=== PATIENT | female | born 1940 | race Caucasian/White ===

== ENCOUNTER 2018-09-24 00:20 | Inpatient (IN) | payer OTHER ==
[2018-09-24] VITALS (19 sets, daily range): BP systolic 85–124; BP diastolic 41–76
[~2018-09-24] VITALS: Ht 154.9 cm; Wt 83.5 kg
--- NOTE | 2018-09-24 00:29 | NUR ---
PT PRESENTS TO ER TODAY WITH C/O OF ALOC. PER MEDICS PT WAS LAST SEEN AWAKE APPROX 2 HRS AGO. PT WENT TO BED USUAL AND AT APPROX 2300 YESTERDAY CONTOUR STITCHER WENT IN TO CARE FOR PT AND FOUND HER UNRESOPNSIVE. PER MEDICS PTS O2 WAS 80 SO SHE WAS PLACED ON 15L OF O2 VIA MASK. MEDICS REPORT A GSC OF 3 IN THE FEILD. UPON ARRIVAL PT ON MASK AT 15LS. PT RESPONDS TO PAINFUL STIMULI. NO TRAUMA NOTED. PT PLACED ON FULL PIN PUSHER. CPT CONTINUED ON 15L VIA MASK. RHONCHI HEARD IN THE UPPER LOBES BILATERALLY ON ASCULTATION. DR OLMOS AT BEDSIDE FOR MSE.
[2018-09-24 01:03] LABS: BASOPHIL % 0.2 % (0-2); PLATELET COUNT 334 x10^3mcL (130-400)
[2018-09-24 01:09] LABS: CALCIUM 8.3 mg/dL (8.5-10.1); CARBON DIOXIDE 28.5 mmol/L (21-32); CHLORIDE SERUM 97 mmol/L (98-107); CREATININE SERUM 1.1 mg/dL (0.6-1.0); GLUCOSE SERUM 89 mg/dL (74-106); POTASSIUM SERUM 4.6 mmol/L (3.5-5.1); RED CELL DISTRIBUTION WIDTH 16.8 % (11.5-14.5); SODIUM SERUM 133 mmol/L (136-145)
[2018-09-24 01:23] LABS: ALKALINE PHOSPHATASE 115 U/L (46-116); ALT/SGPT 41 U/L (14-59); AST/SGOT 53 U/L (15-37); BILIRUBIN TOTAL 0.63 mg/dL (0.20-1.00); FREE T4 1.59 ng/dL (0.76-1.46); TOTAL PROTEIN, SERUM 6.9 g/dL (6.4-8.2)
[2018-09-24 01:24] LABS: ALBUMIN 2.2 g/dL (3.4-5.0)
--- NOTE | 2018-09-24 01:54 | NUR ---
0035 RT AT BEDSIDE. 0039 PT PLACED ON BIPAP BY RT PER MD OLMOS. 0112 MD OLMOS AT BEDSIDE FOR INTUBATION. 0113 10MG OF ETOMIDATE GIVEN BY ENRICO GONZALEZ BY VERBAL ORDER OF MD OLMOS. 0114 PT GIVEN 150MG OF SUCCINYLCHOLINE BY ENRICO GONZALEZ PER MD OLMOS VERBAL ORDER. 0117 PT INTUBATED BY MD OLMOS ON FIRST ATTEMPT. 7.5 ETT AND 21CM AT THE LIP. 0120 NG TUBE PLACED BY MYSELF SARIAH WESTON. EPIGASTIRC ASCULTATION TO CONFIRM PLACEMENT. 0125 PT PLACED ON VENT BY RT. 0127 RADIOLOGY AT BEDSIDE FOR CHEST XRAY TO CONFIRM PLACEMENT OF ETT AND NG TUBE.
[2018-09-24 02:26] LABS: MAGNESIUM 2.1 mg/dL (1.8-2.4); PHOSPHOROUS 4.2 mg/dL (2.5-4.9)
--- NOTE | 2018-09-24 02:27 | NUR ---
0205 PT STARTED ON PROPOFOL 10MCG/KG/MIN WITH PT ESTIMATED AT 59KG. 0210 PTS BP 79/49 PTS PROPOFOL DRIP STOPPED MD OLMOS MADE AWARE. 0215 PT STARTED ON 2ND LITER OF NS PER MD OLMOS IN THE L WRIST. 0219 INSERTED MARTINEZ USING ASEPTIC TECHNIQUE, 200CC OF OUTPUT. 0232 FAMILY AT BEDSIDE.
[2018-09-24] MEDS ORDERED: KEFLEX500 M1 PO (02:36)
[2018-09-24] MEDS ORDERED: NATURE'S BLEND F1 MG PO (02:37)
[2018-09-24] MEDS ORDERED: NATURE'S BLEND500 M3 PO (02:38)
[2018-09-24] MEDS ORDERED: BENAZEPRIL HYDR20 M1 PO (02:39)
[2018-09-24] MEDS ORDERED: ALENDRONATE SOD70 M2 PO (02:39)
[2018-09-24] MEDS ORDERED: NOR5 PO (02:49)
[2018-09-24] MEDS ORDERED: ELIQUIS5 MG PO (02:49)
[2018-09-24] MEDS ORDERED: SYNTHROID0.112 MG PO (02:50)
[2018-09-24 03:00] LABS: microscopic required? YES; urine erythrocyte NEGATIVE (NEGATIVE)
[2018-09-24 03:11] LABS: AMPHETAMINE QUAL UR NONE DETECTED (See below)
--- NOTE | 2018-09-24 03:20 | NUR ---
REPORT GIVEN TO ENRICO GLEZ IN ICU TO ASSUME CARE.
--- NOTE | 2018-09-24 04:13 | NUR ---
PT TRANSPORTED ON MONITOR BY ENRICO BRYAN, AUBREY PETTY, AND RT TO CT FOR CT HEAD PRIOR TO TRANSPORT TO ICU. PT REMAINED ON DRIPS TITRATED TO SEDATION AND BP. ARRIVED AT ICU WITH NO INCIDENT AND CARE WAS TRANSFERRED TO THE ICU TEAM WITH ENRICO GLEZ THE PRIMARY NURSE.
--- NOTE | 2018-09-24 04:47 | NUR ---
RECEIVED PT FROM ER VIA [facility] ACCOMPANIED WITH NURSE, EMT AND RT, PT SEEN, INTUBATED, RESPONDS TO TACTILE STIMULUS, OPEN EYES AT TIMES, ON PROPOFOL 10 MCG/KG/MIN, 7.5 ETT WITH VENT ON AC MODE WITH TV-500 ML, PEEP-5, RATE:14 AND FIO2:50%, SPO2:96%, RT PROTOCOL, LUNG SOUNDS DIMINISHED, ON HEALTHCARE PROJECT MANAGER WITH SB, ON LEVOPHED 6 MCG/MIN, PULSES PALPABLE, EDEMA NOTED TO BLE, PT CONTRACTED TO BUE AND BLE, ECCHYMOSIS TO BUE AND DISCOLORATION TO BUTTOCKS, OGT IN PLACE, ABD SOFT WITH ACTIVE BS, NO BM AT THIS TIME, MARTINEZ VIA GRAVITY DRAINING LEE ANN COLOR URINE, VICENTE WRIST WITH SOFT RESTRAINTS, SIDE RAILS UP.
--- NOTE | 2018-09-24 05:24 | NUR ---
PER DR CHELSIE GAGE WITH NO SCD TO BLE AT THIS TIME DUE TO PT RECENTLY WITH DVT HX.
[2018-09-24 05:25] LABS: PLATELET COUNT 309 x10^3mcL (130-400)
[2018-09-24 05:31] LABS: CALCIUM 7.4 mg/dL (8.5-10.1); CARBON DIOXIDE 21.7 mmol/L (21-32); CHLORIDE SERUM 101 mmol/L (98-107); GLUCOSE SERUM 107 mg/dL (74-106); SODIUM SERUM 134 mmol/L (136-145)
--- NOTE | 2018-09-24 05:35 | NUR ---
RT SUJATHA DECREASED FIO2 TO 40%, LEVOPHED INFUSING @ 8 MCG/MIN, DR OROPEZA MADE AWARE OF PT'S RHYTHM IS SB WITH BBB AND PAC'S.
[2018-09-24 05:36] LABS: BASOPHIL % 0 % (0-2)
--- NOTE | 2018-09-24 05:39 | NUR ---
DR HOLGUIN MADE AWARE OF PT'S H/H FROM 07/06 DROP TO 8.5. NO NEW ORDER RECEIVE AT THIS TIME.
--- NOTE | 2018-09-24 06:25 | NUR ---
ADVANCED OGT AT THIS TIME PER CXR RESULT, DR HOLGUIN MADE AWARE, PER DR HOLGUIN HE WILL ORDER ANOTHER KUB-ABD.
--- NOTE | 2018-09-24 07:11 | NUR ---
REPORT GIVEN TO JAZMINE-RN, ALL QUESTIONS ANSWERED AND CONCERNS ADDRESSED.
--- NOTE | 2018-09-24 10:47 | NUR ---
ATTEMPTED TO CALL PT'S SONS SPENCER AND [employer] MAH[employer], AT NUMBERS LISTED ON PT'S FACE SHEET. NEITHER PARTIES ANSWERED. MESSAGE LEFT TO CALL BACK [facility] ICU AND NUMBER PROVIDED. PER DR. HARRIS EMERGENT CENTRAL LINE CONSENT TO BE ISSUED.
--- NOTE | 2018-09-24 11:00 | NUR ---
TIME OUT PERFORMED AT THIS TIME FOR ULTRASOUND GUIDED CENTRAL LINE INSERTION AND PLACEMENT RIGHT VERSUS LEFT INTERNAL JUGULAR VEIN. DR. HARRIS, MARGARITA TECH, AND MYSELF PRESENT. ALL IN AGREEMENT FOR PT, PROCEDURE, PLACEMENT, POSITIONING, AND APPROPRIATE REVIEW OF RECORDS.
--- NOTE | 2018-09-24 12:14 | NUR ---
PROPOFOL D/C'D. INITIATED FENTANYL @ 0.5 MCG/KG/HR AND VERSED @ 1 MG/HR.
[2018-09-24 12:27] LABS: BASOPHIL % 0 % (0-2); PLATELET COUNT 279 x10^3mcL (130-400); RED CELL DISTRIBUTION WIDTH 17.2 % (11.5-14.5)
--- NOTE | 2018-09-24 14:32 | NUR ---
BP 102/47 (69). LEVOPHED TITRATED FROM 5 MCG/MIN TO 2.5 MCG/MIN AT THIS TIME. WILL CONTINUE TO MONITOR
--- NOTE | 2018-09-24 15:07 | NUR ---
Initial Nutrition Assessment Dx: Respiratory insufficiency PMHx: HTN, Severe RA, Hypothyroidism, Recent DVT (Dx [facility]) PSHx: None Labs: (09/24) Na 134L, K 4, BG 107H, BUN 32H, Cr 1.0, A1c 6.1, WBC 9.5, H/H 8.5L/25L Meds: Colace, Propofol, Eliquis, Folic acid, Fosamax, Levophed, Lotensin, Blodgett, Norvasc, Oyster shell Ca, NSIV, Synthroid, Tylenol, Vancocin, Zosyn, Zofran Also receives propofol at 10 mcg/kg/min (3.846 mL/Hr which provides an additional 101 kcal). Nutrition Support: TF with Jevity 1.2 @ goal rate 50 mL/Hr with 50 mL FWF Q4H. Provides 1440 calories, 67 g protein, and 968 mL FW (total fluids including FWF: 1268 mL). Residuals: None documented I and O: (09/24) 460/200 +260 Ht: 61" (155 cm) Wt: 141# (64.1 kg) BMI: 26.7 (Acceptable for advanced age) IBW: 105# %IBW: 134% UBW: Unknown, pt. intubated and unable to answer questions. Age: 77 y/o elderly female Food Allergies: NKFA Skin: Rt. foot skin tear, discolorations to buttocks, ecchymosis to BUE Tucker: 9 Edema: + to BLE GI: Last BM Per H&P, pt. admitted with worsening ALOC and SOB x 1 day associated with O2 desaturation in the 80%'s and unresponsiveness. Pt. bedbound d/t severe RA, but is AO x 3 at baseline. Recent hospitalization at [place] with new medication for DVT; discharged on 09/16/18. KUB x-ray conducted on 09/24 with enteric feeding tube placed correctly in stomach with gas and moderate amounts of stool throughout colon per provider notes. Pt. seen intubated and sedated during visit with OGT in place. Tolerating Jevity running at 10mL/Hr and pt. tolerating well without GI distress per RN. T: TF/TPN Problem with: No reports of N/V/D/C per RN Problems with: Chewing: Y Swallowing: Y Current appetite: N/A Recent wt change: Unknown %wt change: N/A Vitamin/Supplement use: Unknown Special diet at home: Regular at baseline Physical activity: Bedbound d/t severe RA Education: No diet education provided; not appropriate at this time Estimated Nutritional Needs Based on body weight 64 kg, Ve: 7.40, T: 36.2 C Energy: 1073 kcal/d (PSU 2003 for pts. in ICU with ventilation support) Protein: 64-76 g/d (1.0-1.2 g/kg)-skin breakdown prevention/maintenance Fluid: 1073 ml/d (1 ml/kcal) or per doctor Nutrition Diagnosis 1. Excessive EN infusion r/t current TF regimen order and decreased needs for critical illness AEB current ordered rate and sedative agent meeting >140% estimated calorie needs. Intervention/RD recommendations 1. Recommended to decrease Jevtiy 1.2 to 40 mL/Hr to better meet calorie needs. Alongside propofol (3.846 mL/Hr which provides an additional 101 kcal), regimen will provide 1253 calories and 53 g protein, which will meet 116% estimated calorie needs and 83% estimated protein needs. Monitor/Evaluate Goal: TF intake at least 75% estimated needs Monitor: TF tolerance, Labs, GI function, weights F/U in 2-3 days as high risk (09/26-09/27)
--- NOTE | 2018-09-24 19:35 | NUR ---
RECEIVED PT INTUBATED AND SEDATED ON VERSED @ 1 MG/HR AND FENTANYL @ 0.5 MCG/KG/HR. RSS=5 SLUGGISH RESPONSE. PT UNABLE TO FOLLOW SIMPLE COMMANDS. RESPONDS TO TACTILE STIMULI. PUPILS 2MM SLUGGISH RESPONSE TO LIGHT B/L. NO FACIAL DROOP. EYES OPEN BUT DO NOT TRACK.PT INTUBATED TO VENT, INTACT. LIJ, TLC, CDI, PATENT AND INFUSING. OGT INTACT AND SECURED, AIR AUSCULTATED OVER GASTRIC REGION FOR PLACEMENT WITH XRAY FOR CONFIRMATION. TRACHEA MIDLINE, NO DRAINAGE TO EENT.7.5 ETT, 22 LL. ORAL CARE PROVIDED PER VAP PROTOCOL. VENT SETTINGS AC MODE, FIO2 40%, RATE 14, VT 500, PEEP 5. CHEST RISE/FALL SYMMETRIC, E/U BREATHING NO ACUTE RESP DISTRESS. LUNG SOUNDS FINE CRACKLES BUL, DIMINISHED BASES.PT ON FULL OREMAN, SINUS BRADYCARDIA, HR 43. S1/S2 SOUNDS HEARD, CHEST WALL STABLE, NO S/S OF CHEST PAIN.SKIN COLOR CONSISTENT WITH ETHNICITY, CAP REFILL <3 SECONDS, PULSES WEAK BUT PALPABLE X4 EXTREMITIES, SKIN COOL/PALE. EDEMA NOTED TO RUE HAND +2, LUE +1. NS @ 70 ML/HR. LEVOPHED INFUSING @ 3 MCG/MIN FOR BP SUPPORT. NO SCD'S AT THIS TIME THEY DO NOT FIT PT HAS NOTED CONTRACTURES/ DEFORMITES TO BUE/BLE.GEN WEAKNESS. CONTRACTURES/DEFORMITIES NOTED TO BUE FINGERS AND BLE LEGS IN FROG LIKE POSITION. PT ON TURNING SCHEDULE Q2H. SOFT RESTRAINTS ON TO BUE FOR PT SAFETY PT REACHES FOR ETT WHEN OFF, SKIN/PULSE WNL. NO JOINT SWELLING/TENDERNESS. WARMING MEASURES IMPLEMENTED WITH WARMING BLANKET.OGT INTACT INFUSING JEVITY @ 10ML/HR, 50 ML FWF Q4H. GRV= 10 ML. NO S/S OF N/V.ACTIVE BOWEL SOUNDS X4 QUADRANTS, ABD SOFT/ROUND. NO BM NOTED. HERNIA NOTED TO ABD.F/C DRAINING TO GRAVITY CLEAR YELLOW URINE. NO LABIAL EDEMA/DISCHARGE NOTED. IV TO LEFT WRIST AND RAC, PORTS PATENT, NO S/S OF INFILTRATION, DRESSING CDI. SKIN COOL/DRY TO TOUCH. 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 DISCOLORATION TO BUTTOCKS, OPTIFOAM PLACED FOR PROTECTION.PT SEDATED, BRIANDA. FAMILY AT BEDSIDE AND SUPPORTIVE, TEACHING PROVIDED OF POC AND DISEASE PROCESS. BED AT LOWEST SETTING, CALL LIGHT WITHIN REACH, HOB ELEVATED 30 DEGREES. WILL CONT TO MONITOR.
--- NOTE | 2018-09-24 19:35 | NUR ---
TUBE FEEDING JEVITY TITRATED TO 20 ML/HR, GRV=10, PT TOLERATING FEEDING.
--- NOTE | 2018-09-24 20:00 | NUR ---
VERSED TITRATED TO 0.5 MG/HR TO ACHIEVE RSS=4.
--- NOTE | 2018-09-24 20:40 | NUR ---
DR. TOBIN AT BEDSIDE FOR MSE.
--- NOTE | 2018-09-24 23:15 | NUR ---
RESTRAINTS OFF AT THIS TIME, PT DOES NOT REACH FOR ETT WHEN RESTRAINTS OFF. WILL CLOSELY MONITOR AND REASSESS FOR NEED FOR RESTRIANTS.
--- NOTE | 2018-09-24 23:15 | NUR ---
TUBE FEEDING TITRATED TO 30 ML/HR. GRV=10. PT TOLERATING FEEDING. NO S/S OF N/V.
--- NOTE | 2018-09-24 23:15 | NUR ---
TUBE FEEDING TITRATED TO 20 ML/HR. GRV=10. PT TOLERATING FEEDING. NO S/S OF N/V.
[2018-09-25] VITALS (18 sets, daily range): BP systolic 88–115; BP diastolic 43–61
--- NOTE | 2018-09-25 00:30 | NUR ---
NIBP 102/53 (76). LEVOPHED TITRATED TO 1 MCG/MIN.
--- NOTE | 2018-09-25 02:00 | NUR ---
NIBP 102/47 (68). LEVOPHED TITRATED OFF AT THIS TIME.
--- NOTE | 2018-09-25 03:17 | NUR ---
TUBE FEEDING TITRATED TO 40 ML/HR, GOAL RATE PER ORDER. GRV=10. PT TOLERATING FEEDING. NO S/S OF N/V.
--- NOTE | 2018-09-25 04:15 | NUR ---
NIBP 82/39 (57). LEVOPHED TITRATED BACK ON @ 1 MCG/MIN.
--- NOTE | 2018-09-25 04:20 | NUR ---
HHN TX PRN GIVEN. DUONEB 3ML.
[2018-09-25 05:29] LABS: PLATELET COUNT 209 x10^3mcL (130-400)
--- NOTE | 2018-09-25 05:30 | NUR ---
NIBP 81/42 (57). LEVOPHED TITRATED TO 3 MCG/MIN.
[2018-09-25 05:37] LABS: BASOPHIL % 0 % (0-2); RED CELL DISTRIBUTION WIDTH 17.2 % (11.5-14.5)
[2018-09-25 05:39] LABS: CALCIUM 7.4 mg/dL (8.5-10.1); CARBON DIOXIDE 22.4 mmol/L (21-32); CHLORIDE SERUM 102 mmol/L (98-107); CREATININE SERUM 0.8 mg/dL (0.6-1.0); GLUCOSE SERUM 133 mg/dL (74-106); MAGNESIUM 1.5 mg/dL (1.8-2.4); PHOSPHOROUS 2.7 mg/dL (2.5-4.9); POTASSIUM SERUM 3.7 mmol/L (3.5-5.1); SODIUM SERUM 133 mmol/L (136-145)
--- NOTE | 2018-09-25 05:39 | NUR ---
HEDIS ABSTRACTOR AT BEDSIDE FOR CXRY
--- NOTE | 2018-09-25 05:45 | NUR ---
NIBP 94/55 (70). LEVOPHED TITRATED TO 2 MCG/MIN.
--- NOTE | 2018-09-25 07:15 | NUR ---
GAVE REPORT TO ENRICO QUAN. UPDATES GIVEN, QUESTIONS ANSWERED.
--- NOTE | 2018-09-25 07:29 | NUR ---
BP 86/42; RECHECKED BP 89/42 (62); LEVOPHED WAS TITRATED FROM 2MCG/MIN TO 4MCG/MIN.
--- NOTE | 2018-09-25 07:30 | NUR ---
THE PATIENT WAS INTUBATED AND SEDATED WITH VERSED AT 0.5MG/HR AND FENTANYL AT 0.5MCG/KG/HR. BOTH DRIPS WERE HELD AT THIS TIME FOR SEDATION VACATION. PATIENT RESPONSIVE TO TACTILE STIMULUS AND VICENTE PUPILS WITH SLUGGISH REACTION TO LIGHT. 7.5 ETT WAS SECURED AT 23CM AT LIPLINE AND CONNECTED TO VENT VIA VCV-AC MODE: FIO2 40% RATE 14, PEEP 5, AND Vt 500. OGT IN PLACE, SECURED TO ETT AND CONNECTED TO TF OF JEVIY AT 40CC/HR. FWF 50CC/Q4HR. NO GASTRIC RESIDUAL. TLC TO LIJ WITH DRESSING IN PLACE. OTHER H/L TO LEFT AND RIGHT WRISTS. PATIENT WAS ON LEVOPHED DRIP AND NS. MARTINEZ CATH TO GRAVITY DRAINING YELLOW URINE. GAYMAR TEMP VIA RECTAL IN PLACE. HEAD OF BED WAS ELEVATED. BED WAS AT LOWEST POSITION. ALARM WAS ON.
--- NOTE | 2018-09-25 07:45 | NUR ---
BP 89/42 (62); LEVOPHED WAS TITRATED FROM 4MCG/MIN TO 6MCG/MIN.
--- NOTE | 2018-09-25 08:00 | NUR ---
FENTANYL WAS RESUMED AT 0.25MCG/KG/HR AND VERSED WAS RESUMED AT 0.25MG/HR. BECAUSE THE PATIENT STARTED TO BITE THE TUBE.
--- NOTE | 2018-09-25 11:05 | NUR ---
AIR MATTRESS WAS SET UP FOR THE PATIENT.
--- NOTE | 2018-09-25 11:55 | NUR ---
NEW FENTANYL BAG AND LINE AND NEW VERSED BAG AND LINE WERE CHANGED FOR THE PATIENT.
--- NOTE | 2018-09-25 14:02 | NUR ---
BP 103/57 (75); LEVOPHED WAS TITRATED FROM 6MCG/MIN DOWN TO 4MCG/MIN.
--- NOTE | 2018-09-25 14:28 | NUR ---
DR. NEFF IN TO SEE THE PATIENT. UPDATE WAS PROVIDED TO THE DOCTOR.
--- NOTE | 2018-09-25 14:36 | NUR ---
BP 87/44 (62); LEVOPHED WAS TITRATED FROM 4MCG/MIN TO 6MCG/MIN.
--- NOTE | 2018-09-25 16:22 | NUR ---
CENTRAL LINE CARE AND MARTINEZ CARE WERE PROVIDED TO THE PATIENT PER PROTOCOL. THE PATIENT WAS GIVEN A BATH. GOWN CHANGED.
--- NOTE | 2018-09-25 17:33 | NUR ---
PATIENT TO BE TRANSFERRED TO [facility] ROOM CICU ROOM 231. REPORT TO BE CALLED TO . DR SANCHEZ GOFF MD AND DR HAMMOND OUTSIDE MEDICAL SALES REPRESENTATIVE. DISCHARGE ORDERS COMPLETED BY DR QUAN.
--- NOTE | 2018-09-25 18:30 | NUR ---
THE PATIENT REMAINED INTUBATED AND ON VENT WITH THE SAME SETTING: FIO2 40%, RATE 14, PEEP 5, AND Vt500. PATIENT WAS ON FENTANYL AT 0.25MCG/KG/H AND VERSED 0.25MG/HR. ALSO, PATIENT WAS ON LEVOPHED AT 6MCG/MIN DUE TO LOW BP AND MAP.
--- NOTE | 2018-09-25 19:30 | NUR ---
RECEIVED REPORT FROM ENRICO SALES. PT IS ALERT AND RESPONSIVE TO VERBAL STIMULUS. PT IS INTUBATED AND SEDATED ON FENTANYL 0.25 MCG/KG/HR AND VERSED 0.25 MG/HR. 7.5 ETT AT 22 CM AT LL. EENT FREE OF DISCHARGE. OGT PATENT AND INTACT. VENT SETTINGS INCLUDE TV: 500, O2: 40%, RATE: 14, PEEP: 5. LUNG SOUNDS DIMINISHED TO BILATERAL UPPER AND LOWER LOBES. S1 S2 HEART SOUNDS AUSCULTATED. PT HAS PERIPHERAL IV TO LEFT HAND AND LIJ PATENT, DRESSING CDI. NS INFUSING AT 10 ML/HR, AND LEVOPHED INFUSING AT 6 MCG/MIN. PITTING EDEMA TO BLE, AND +1 EDEMA TO BUE. CAP REFILL <3 SECONDS X4. SKIN IS WARM AND CONSISTENT WITH ETHNICITY. PT HAS ECCHYMOSIS TO BUE, AND RIGHT LEG SKIN TEAR, AND RIGHT KNEE SCAB. PT'S LOWER EXTREMITIES APPEAR TO RESEMBLE CONTRACTURES. ABD IS SOFT AND ROUNDED WITH ACTIVE BOWEL SOUNDS X4Q. JEVITY INFUSING AT AT 40 ML/HR WITH NO RESIDUAL. MARTINEZ DRAINING VIA GRAVITY, URINE IS YELLOW WITH FAIR OUTPUT. OPTIFOAM TO COCCYX. ALL QUESTIONS AND CONCERNS ANSWERED.
--- NOTE | 2018-09-25 20:37 | NUR ---
DR. TOBIN AT BEDSIDE FOR UPDATES. ALL QUESTIONS AND CONCERNS ANSWERED.
--- NOTE | 2018-09-25 23:15 | NUR ---
LEVOPHED TITRATED FROM 6 MCG/MIN TO 7 MCG/MIN FOR LOW BP AND MAP.
--- NOTE | 2018-09-25 23:49 | NUR ---
RT AT BEDSIDE.
[2018-09-26] VITALS (17 sets, daily range): BP systolic 85–115; BP diastolic 36–84
[2018-09-26 05:53] LABS: PLATELET COUNT 258 x10^3mcL (130-400)
[2018-09-26 05:54] LABS: CALCIUM 7.4 mg/dL (8.5-10.1); CARBON DIOXIDE 24.1 mmol/L (21-32); CHLORIDE SERUM 100 mmol/L (98-107); CREATININE SERUM 1.1 mg/dL (0.6-1.0); GLUCOSE SERUM 173 mg/dL (74-106); MAGNESIUM 2.4 mg/dL (1.8-2.4); PHOSPHOROUS 2.4 mg/dL (2.5-4.9); POTASSIUM SERUM 4.1 mmol/L (3.5-5.1); SODIUM SERUM 133 mmol/L (136-145)
[2018-09-26 05:58] LABS: RED CELL DISTRIBUTION WIDTH 17.2 % (11.5-14.5)
[2018-09-26 06:23] LABS: BAND NEUTROPHIL 4 % (0-10); MONOCYTE 2 % (0-7); SEGMENTED NEUTROPHILS 89 % (37-75)
[2018-09-26 06:26] LABS: PLATELET MORPHOLOGY PLATELETS NORMAL; burr cell (echinocyte) 1+; rbc morphology (normal/abnorm) ABNORMAL (NORMAL)
--- NOTE | 2018-09-26 07:13 | NUR ---
BP 108/50 (MAP 73), LEVOPHED TITRATED FROM 7 MCG/MIN TO 6 MCG/MIN. WILL CONTINUE TO MONITOR.
--- NOTE | 2018-09-26 07:50 | NUR ---
PATIENT'S BP 112/46 (MAP 74). LEVOPHED TITRATED FROM 6MCG/MIN TO 5 MCG/MIN. WILL CONTINUE TO MONITOR.
--- NOTE | 2018-09-26 08:15 | NUR ---
PATIENT'S BP 108/66, MAP 77. LEVOPHED TITRATED FROM 5 MCG/MIN TO 4 MCG/MIN. WILL CONTINUE TO MONITOR.
--- NOTE | 2018-09-26 08:47 | NUR ---
BP 114/41, MAP 66. LEVOPHED TITRATED FROM 4 MCG/MIN TO 2 MCG/MIN. WILL CONTINUE TO MONITOR.
--- NOTE | 2018-09-26 09:00 | NUR ---
SEEN BY RSIDENTS AND PLAN OF CARE DISCUSSED.
--- NOTE | 2018-09-26 10:30 | NUR ---
DR GOEL AND RESIDENTS ROUNDING. UPDATES PROVIDED BEDSIDE.
--- NOTE | 2018-09-26 10:30 | NUR ---
BP 78/32, MAP 49. LEVOPHED TITRATED FROM 3 MCG/MIN TO 2 MCG/MIN.
--- NOTE | 2018-09-26 10:47 | NUR ---
RECEIVED PATIENT FROM TRUCK SWITCHER WITH CONTRACTED EXTREMITIES AND EDEMA TO THE LOWER EXTREMITIES OF ONE PLUS AND TO THE UPPER OF ONE WELL WITH FLUID RETENTION AND REDNESS TO THE SKIN. PATIENT HAS BEEN ON 02 VIA VENT AND ORAL AIRWAY. ALSO ON FEEDING THROUGH THE ORAL OF JEVITY AT 50CC PER HOUR. THE PATIENTS NG HAS MINIMAL TO NO RESIDUAL AND PLACEMENT CHECKED INDICATED. VITALS AT THIS TIME AT 97.9, 67, 94%, 108/80, 17. PATIENT HAS MINIMAL RESPONDING TO STAFF AND HAS BEEN LETHARGIC AND ON LEVAFED, FENTANYL. PATINET HANNON BEEN POSITIONED AND MARTINEZ TO GRAVITY AND URINE IS CLOUDY WITH SEDIMENT NTOED. PATIENT HAS A PROBE TO THE RETAL AND TEMPERATURE HAS BEEN MAINTAINED. CONTINUED [facility] REPIRATORY THERAPY ORDERED AND NO SIGNS OF ASPIRATION NOTED. WILL CONTINUE TO MONITOR.
--- NOTE | 2018-09-26 10:53 | NUR ---
DR TOBIN AT BEDSIDE TO ASSESS PATIENT. UPDATES PROVIDED BY NURSING.
--- NOTE | 2018-09-26 10:56 | NUR ---
SEEN BY DR TOBIN AND ORDER FOR C PAP RECIEVED. RESPIRATORY SET UP THE PATIENT AND WILL CONTINUE TO MONITOR.
--- NOTE | 2018-09-26 11:01 | NUR ---
EUGENIO BERNARD AT BEDSIDE AND PLACED PATIENT ON CPAP 10/5, FIO2 30%
--- NOTE | 2018-09-26 11:20 | NUR ---
CONTINUED ON LEVAPHED AND THE FENTANYL AND THE VERSED ON HOLD AT THIS ITME. PATIENT WILL BE MONITORED FOR TOLERANCE OF THE C PAP VIA VENT.
--- NOTE | 2018-09-26 15:05 | NUR ---
FEMALE FAMILY ARRIVED AND NOW AT BEDSIDE. PATEINT WITH MINIMAL REACTION TO STIMULI STILL NOTED. REID MCKINLEYS BEEN TOLERATING THE C PAP WELL AND 02 AT 98 PERCENT AT THIS TIME. WILL CONTINUE TO MONITOR INDICATED.
--- NOTE | 2018-09-26 15:59 | NUR ---
PATIENT'S BP 113/56, MAP 77. LEVOPHED TITRATED FROM 3 MCG/MIN TO 2 MCG/MIN.
--- NOTE | 2018-09-26 16:16 | NUR ---
MOVED THE PATIENT AND PATIENT WAS NOTED TO HAVE MILD REACTION TO THE MOVEMENT. HER BONES ARE NOTE TO MAKE CRACKING SOUNDS AND JOINTS ARE FROZEN TO THE BILATERAL LOWER EXTREMITIES. PATIENT IS NOW BEING SUCTIONED BY RT AND SHE HAS RESPONDED TO THIS BUT IS QUICKLY BACK TO HER LETHARGIC STATE AGAIN. NO SPONTANEOUS EYE OPENING NOTED. CONTINUED ON C PAP INDICATED.
--- NOTE | 2018-09-26 16:32 | NUR ---
PATIENT'S BP 141/55, MAP 88. LEVOPHED TITRATED FROM 2 MCG/MIN TO 1 MCG/MIN.
--- NOTE | 2018-09-26 17:45 | NUR ---
PATIENT'S BP 100/43, MAP 62. LEVOPHED TITRATED OFF AT THIS TIME.
--- NOTE | 2018-09-26 18:36 | NUR ---
PATIENT HAS BEEN CALM AND MINIMAL NOTED PERIODS OF MOVEMENT AND HAS NOT YET OPENED HER EYES. CONTINUED ON THE C PAP ORDERE AND VITAS ARE AT 75, 98%, 92/44. PATIENT HAS NOT HAD A TEMPERATURE AND THE OUTPUT IS MINIMAL. PATIENT HAS BEEN DIFFICULT TO POSITION DUE TO HER CONTRACTURES. FAMILY WAS HERE FOR A LONG TIME AND ATTENTIVE WITH CARE.
--- NOTE | 2018-09-26 19:30 | NUR ---
REC'D PT FROM DAY NURSE. PT RESTING IN BED. CURRENTLY NONVERBAL AND VENTED. RESPONDS TO PAINFUL STIMULI. PUPILS EQUAL AND SLUGGISH. 7.[address], LL 22. VENT SETTINGS: A/C, RATE 14, TIDAL VOLUME 500, PEEP 5, FIO2 30%. SPO2 99%. ORAL CARE PROVIDED. MINIMAL WHITE SECRETIONS SUCTIONED. TELE 2, NSR. TF JEVITY 1.2 INFUSING @ 40 ML/HR WITH 50 ML H20 FLUSH Q4H VIA OGT. NO RESIDUAL ASPIRATED. EDEMA NOTED TO BUE/BLE. ECCHYMOSIS BUE. OPTIFOAM TO BUTTOCKS. HEELS/ELBOWS OFFLOADED. CONTRACTURES TO BLE WITH STIFFENED BUE. DEFORMITIES NOTED TO VICENTE HANDS D/T HX RA. THICKENED TOE NAILS. MARTINEZ IN PLACE STATLOCKED TO UPPER THIGH DRAINING YELLOW URINE WITH SEDIMENTS. IVS TO RFA/LFA FLUSHED AND PATENT, SITES WNL. CENTRAL LINE TO LIJ NOTED. ALL PORTS FLUSHED AND PATENT, SITE WNL. CONTINUOUS RECTAL TEMP: 98.9. WILL CONTINUE TO MONITOR.
--- NOTE | 2018-09-26 19:50 | NUR ---
BP 97/38, MAP 59, HR 77. LEVO RESTARTED @ 1 MCG/MIN
[2018-09-27] VITALS (18 sets, daily range): BP systolic 88–119; BP diastolic 38–59
--- NOTE | 2018-09-27 01:08 | NUR ---
SPOKE TO DR. PRATT. MADE AWARE OF DR. NEFF'S RECOMMENDATIONS TO CHANGE ELIQUIS TO 5 MG BID PER CONSULTATION NOTE. PT CURRENTLY ON ELIQUIS 5 MG DAILY. RESIDENT STATED HE WILL RELAY TO DAY TEAM. PT'S TEMP 99.9 VIA CONTINUOUS RECTAL TEMP. COOLING MEASURES INITIATED. BP 89/35, MAP 55, HR 80. LEVOPHED TITRATED FROM 1 MCG/MIN TO 2 MCG/MIN
[2018-09-27 04:54] LABS: PLATELET COUNT 205 x10^3mcL (130-400)
[2018-09-27 05:03] LABS: RED CELL DISTRIBUTION WIDTH 17.4 % (11.5-14.5)
[2018-09-27 05:07] LABS: CALCIUM 7.4 mg/dL (8.5-10.1); CARBON DIOXIDE 24.2 mmol/L (21-32); CHLORIDE SERUM 101 mmol/L (98-107); CREATININE SERUM 1.1 mg/dL (0.6-1.0); GLUCOSE SERUM 125 mg/dL (74-106); MAGNESIUM 2.4 mg/dL (1.8-2.4); PHOSPHOROUS 2.8 mg/dL (2.5-4.9); POTASSIUM SERUM 4.1 mmol/L (3.5-5.1); SODIUM SERUM 131 mmol/L (136-145)
[2018-09-27 05:46] LABS: BAND NEUTROPHIL 4 % (0-10); MONOCYTE 3 % (0-7); SEGMENTED NEUTROPHILS 80 % (37-75)
[2018-09-27 05:47] LABS: rbc morphology (normal/abnorm) ABNORMAL (NORMAL)
[2018-09-27 05:48] LABS: PLATELET MORPHOLOGY PLATELETS NORMAL
--- NOTE | 2018-09-27 06:14 | NUR ---
NO SIGNIFICANT CHANGES DURING SHIFT. PT HAS BEEN REPOSITIONED EVERY 2H. LEVOPHED INFUSING @ 2 MCG/HR. TEMP 98.6. MARTINEZ CARE COMPLETED. PT CLEANED. LINENS CHANGED. SMALL YELLOW/CLEAR MUCOUSLY STOOL THIS AM. NO CHANGES IN VENT SETTINGS. WILL ENDORSE TO DAY NURSE.
--- NOTE | 2018-09-27 06:41 | NUR ---
BP 106/55, MAP 71, HR 70. LEVOPHED REDUCED FROM 2 MCG/MIN TO 1 MCG/MIN. WILL CONTINUE TO MONITOR.
--- NOTE | 2018-09-27 07:11 | NUR ---
PATIENT WITH RESPIRATIONS IN HIGH 20'S AND BUCKING VENT. INITIATING VERSED AT 0.5 MG/HR TO ACHIEVE MRSS 4.
--- NOTE | 2018-09-27 07:19 | NUR ---
LEVOPHED TITRATED FROM 1 MCG/MIN TO 2 MCG/MIN FOR BP 76/50, MAP 60.
--- NOTE | 2018-09-27 07:30 | NUR ---
THE PATIENT WAS INTUBATED AND SEDATION WITH VERSED AT 0.5 MG/HR. THE PATIENT RESPONSIVE TO TACTILE STIMULI WITH BRISK REACTION 3MM TO LIGHT. PATIENT WAS UNABLE TO FOLLOW COMMANDS. 7.5 ETT WAS SECURED AT 22CM AT LIPLINE. ETT CONNECTED TO VENT VIA VCV-AC MODE: FIO2 30%, RATE 14, Vt 500, AND PEEP 5. BREATHING WAS EVEN AND UNLABORED. OGT IN PLACE AND SECURED TO ETT; PLACEMENT WAS VERIFIED WITH SOME AIR BOLUS. NO GATRIC RESIDUAL AT THIS TIME. OGT TO TF WITH JEVITY 1.2 AT 40CC/HR AND FWF OF 50CC/4HR. TLC TO LEFT IJ WITH DRESSING IN PLACE. SL TO LEFT AND WRIST WRISTS. MARTINEZ CATH TO GRAVITY DRAINING SCANT AMOUNT OF YELLOW URINE. GAYMAR TEMP VIA RECTUM. PATIENT WAS ON AIR MATTRESS. HEAD OF BED WAS ELEVATED. BED WAS AT LOWEST POSITION. SIDE RAILS UP X3.
--- NOTE | 2018-09-27 09:07 | NUR ---
BP 83/45 (59), AND RECHECKED 97/33 (63); LEVOPHED WAS TITRATED FROM 2MCG/MIN TO 3MCG/MIN.
--- NOTE | 2018-09-27 10:32 | NUR ---
DR. GOEL AND THE TEAM WERE MAKING ROUND TO SEE THE PATIENT. DR. GOEL AND DR. QUINN WERE AWARE OF THE PATIENT'S STATUS, LAB RESULTS THIS MORNING, AND URINE OUTPUT LAST NIGHT. AWAITING FOR NEW ORDER.
--- NOTE | 2018-09-27 12:38 | NUR ---
BOLUS 250ML OF NS WAS INITIATED. BP 105/47 (70).
--- NOTE | 2018-09-27 13:13 | NUR ---
Follow-up Nutrition Assessment- Dx: respiratory insufficiency Labs: (09/27) Na 131 L, K 4.1, Glu 125 H, BUN 32 H, Cr 1.1 H, Alb 2.2 L, Ca 7.4 L, Phos 2.8, TG 122, Chol 126, LDL 91, HDL 21 L, A1c 6.1, H/H 7.2/22. Meds: Colace, Eliquis, Folic acid, Fosamax, Levophed, Lotensin, Magnesium sulfate, Mcleod, Norvasc, Oyster shell calcium, sodium chl 0.9%, Sublimaze in sodium chl 0.9% IV, synthroid, Tylnol, Vancocin, Versed, Zofran, Zosyn. Current Nutrition Support: TF Jevity 1.2 at 40 mL/hr via NGT with FWF 50 mL Q4H. TF Intake: (09/27) 1415 mL, (09/26) 858 mL, (09/25) 275 mL I/O (mL): (09/24) 460/200 (+260), (09/25) 2973/1025) +1984, (09/26) 2262/650 (+1612), (09/27) 3406/520 (+2886) GTF Residuals: Weights: (09/24) 130-141#, (09/25) 143#, (09/27) 164# Skin: skin tear to rt foot open to air Edema: None noted Last BM: 09/27 x 1 Current TF Regimen provides 960 mL total volume, 1152 total kcal, 53 total protein. This meets 84% estimated kcal and 82% estimate protein needs; adequate. RDN visited with Pt, spoke with RN, plan to continue treatment, not ready to extubate. Pt continues on Jevity 1.2 at 40 mL/hr, tolerating well, 1 episode of loose stool reported. Pt no longer on Profofol, now on Versed. Per general operator (09/27), Levophed was titrated from 2 mcg/min to 2 mcg/min. Pt continues intubated, sedated, Pt responsive to tactile stimuli. Pt continues on Jevity 1.2 at 40 mL/hr with FWF 50 mL/hr Q4H. Per physician progress note (09/27), noted with increased WBC count on 09/26, vancomycin added. Pt remains afebrile, cultures have been negative so far except for sputum showing gram negative bacilli. Pt continues on mechanical ventilation. Per previous RDN note (09/24), Pt admitted with worsening ALOC and SOB x 1 day associated with O2 desaturation in the 80%'s and unresponsiveness. Pt is bedbound with severe RA. Pt noted to be tolerating TF Jevity at 10 mL/hr, with goal rate 50 mL/hr. RDN recommended to decrease goal rate to 40 mL/hr due to sedative agent (Profolol) running at time of RDN assessment on 09/24. TF order changed goal rate of 40 mL/hr. Pt now off Profofol. Estimated Nutritional Needs changed from prior assessment d/t Pt on ventilator support. For those on ventilator support: Ventilator Settings 7.91 L/min Temperature: 98.1 F / 36.7 C Re-estimated nutrition needs. Energy: 1365 kcal/d (PSU 2003b for pt in ICU with ventilation support) Protein: 64-76 gm/d (1-1.2 g/kg for skin breakdown prevention/maintenance) Fluid: 1073 mL/d (1 mL/kcal) or per doctor Nutrition Diagnosis 1. Excessive EN infusion r/t current TF regimen order and decreased nees for critical illness as evidenced by current ordered rate and sedative agent meeting > 140% estimated calorie needs. Intervention/RDN Recommendation(s): 1. Continue TF Jevity 1.2 at 40 mL/hr with FWF 50 mL Q4H as tolerated. Monitor/Evaluate Goal: Intake via nutrition support to meet at least 80% of estimated needs with acceptable tolerance within 2-3 days. Monitor: nutrition support tolerance, Labs, GI function, Skin integrity, Weights. F/U in 2-3 days as high risk (09/29-)
--- NOTE | 2018-09-27 13:13 | NUR ---
Intervention/RDN Recommendation(s): 1. Continue TF Jevity 1.2 at 40 mL/hr with FWF 50 mL Q4H as tolerated.
--- NOTE | 2018-09-27 13:20 | NUR ---
PATIENT UNABLE TO TURN AND REPOSTION INDEPENDENTLY. Z-FLEX BOOTS APPLIED TO PROTECT HEELS.
--- NOTE | 2018-09-27 13:39 | NUR ---
THE BOLUS OF NS 250ML COMPLETED. BP 110/58 (77).
--- NOTE | 2018-09-27 14:26 | NUR ---
PATIENT'S BP 129/59, MAP 79. LEVOPHED TITRATED TO 1 MCG/MIN. WILL CONNTINUE TO MONITOR.
--- NOTE | 2018-09-27 16:18 | NUR ---
THE PATIENT WAS GIVEN A BATH, AND LINEN WAS CHANGED. CENTRAL LINE SITE AND F/C CARE WER PROVIDED TO THE PATIENT. THE DRESSING AT CENTRAL LINE SITE WAS CHANGED WITH ASEPTIC TECHNIQUE. H/L TO LEFT WRIST COULD NOT BE FLUSHED AND WAS REMOVED WITH CATH INTACT.
--- NOTE | 2018-09-27 18:45 | NUR ---
THE PATIENT REMAINED INTUBATED WITH THE SAME SETTING ON VCV-AC MODE: FIO2 30%, RATE 14, PEEP 5, AND Vt500 AND SEDATED WITH VERSED AT 0.5MG/HR. PATIENT TOLERATED WITH TF OF JEVITY AT 40CC/HR. AND FWF 50 CC EVERY 4HR. NO GASTRIC RESIDUAL THROUGHOUT THE SHIFT. LEVOPHED AT 1MCG/MIN TO KEEP MAP > 60.
--- NOTE | 2018-09-27 19:11 | NUR ---
REPORT WAS GIVEN TO MONE BURKSOMING RN. ALL CONCERNS WERE ADDRESSED.
--- NOTE | 2018-09-27 19:44 | NUR ---
RECEIVED PATIENT IN BED NONVERBAL RESPONDS TO TACTILE STIMULI WITH NO SIGN OF ACUTE RESPIRATORY DISTRESS. INTUBATED AND SEDATED ON VERSED,ETT IN PLACE AND SECURE LL 22CM TUBE SIZE 7.5, OGT IN PLACE AND SECURED INFUSING TF JEVITY AT 40ML/HR WITH NO RESIDUAL NOTED, FWF 50ML Q 4HRS. RHONCHI NOTED BILATERALLY. PATIENT ON VENT VIA VCC AC MODE. TELE #2 NSR ON MONITOR. MARTINEZ TO GRAVITY WITH YELLOW URINE OUTPUT. CENTRAL LINE LIJ INFUSING WELL WITH NS AT 10ML/HR. WILL CONTINUE TO MONITOR.
--- NOTE | 2018-09-27 20:08 | NUR ---
RT AT BEDSIDE AT THIS TIME CHECKIN OG PATIENT VENT AND SET UP.
--- NOTE | 2018-09-27 20:37 | NUR ---
DR TOBIN CAME IN, CHECKED PATIENT CONDITION, NO NEW ORDERS MADE.
[2018-09-28] VITALS (18 sets, daily range): BP systolic 81–107; BP diastolic 36–76
--- NOTE | 2018-09-28 01:21 | NUR ---
APPEARS SLEEPING BREATHING EASY AND NONLABOR SATTING AT 96%,WILL CONTINUE TO MONITOR.
--- NOTE | 2018-09-28 01:46 | NUR ---
REPOSITIONED FOR COMFORT, CHANGED FEEDING AND TUBINGS. NO SIGN OF DISTRESS NOTED.
[2018-09-28 05:15] LABS: PLATELET COUNT 180 x10^3mcL (130-400)
[2018-09-28 05:25] LABS: RED CELL DISTRIBUTION WIDTH 17.4 % (11.5-14.5)
[2018-09-28 05:29] LABS: CALCIUM 7.7 mg/dL (8.5-10.1); CARBON DIOXIDE 25.6 mmol/L (21-32); CHLORIDE SERUM 100 mmol/L (98-107); GLUCOSE SERUM 116 mg/dL (74-106); MAGNESIUM 2.5 mg/dL (1.8-2.4); PHOSPHOROUS 3.3 mg/dL (2.5-4.9); POTASSIUM SERUM 4.7 mmol/L (3.5-5.1); SODIUM SERUM 132 mmol/L (136-145)
[2018-09-28 05:50] LABS: BAND NEUTROPHIL 1 % (0-10); METAMYELOCTE 1 % (0-2); MONOCYTE 3 % (0-7); PLATELET MORPHOLOGY PLATELETS NORMAL; SEGMENTED NEUTROPHILS 86 % (37-75); rbc morphology (normal/abnorm) ABNORMAL (NORMAL)
--- NOTE | 2018-09-28 07:08 | NUR ---
NO SIGN OF RESPIRATORY DISTRESS NOTED THE ENTIRE SHIFT. REPOSITIONED FOR COMFORT. CHECKED AT INTERVALS FOR NEEDS AND SAETY.
--- NOTE | 2018-09-28 07:28 | NUR ---
RECEIVED PT INTUBATED W/ 7.5 ETT, 22 @ LL. SEDATED ON VERSED @ 0.5MG/HR TO RSS = 4. L IJ CVC, R FA IV PATENT/CDI. NS INFUSING @ 10 CC/HR. LEVOPHED INFUSING @ 1 MCG/MIN. OGT INTACT AND SECURED. JEVITY INFUSING @ 40 CC/HR, 50 CC FWF Q4H. DOES NOT FOLLOW COMMANDS. VCV/AC: RATE 14, TV 500, PEEP 5, FIO2 30%. NAD. HOB ELEVATED, BED LOW, SIDE RAILS UP X2. CALL LIGHT IN REACH.
--- NOTE | 2018-09-28 08:00 | NUR ---
LEVOPHED TITRATED OFF AT THIS TIME, BP 110/43 (69).
--- NOTE | 2018-09-28 09:25 | NUR ---
CALLED PT'S SON, SPENCER, FOR BLOOD TRANSFUSION CONSENT. DID NOT PATTERN HAND THE CALL, LEFT MESSAGE TO CALL BACK.
--- NOTE | 2018-09-28 09:30 | NUR ---
VERSED TITRATED OFF FOR SEDATION VACATION.
--- NOTE | 2018-09-28 10:31 | NUR ---
DR. GOEL, DR. HARRIS, PRIMARY RN AND ENERGY CONSERVATION DIRECTOR AT BEDSIDE FOR MORNING ROUNDS. PLAN OF CARE DISCUSSED. WILL CONT TO MONITOR.
--- NOTE | 2018-09-28 11:23 | NUR ---
SECOND ATTEMPT TO CONTACT PT'S SON TO OBTAIN BLOOD CONSENT. MESSAGE LEFT WITH NUMBER TO UNIT. WILL RE-ATTEMPT.
--- NOTE | 2018-09-28 13:05 | NUR ---
PRBC INFUSION INITIATED AT THIS TIME.
--- NOTE | 2018-09-28 14:36 | NUR ---
CUCO LOUIE, AT BEDSIDE. UPDATES PROVIDED. QUESTIONS AND CONCERNS ADDRESSED.
--- NOTE | 2018-09-28 15:25 | NUR ---
PRBC INFUSION COMPLETE. NO S/SX OF ADVERSE REACTION.
--- NOTE | 2018-09-28 19:05 | NUR ---
RECEIVED PT INTUBATED AND SEDATED ON VERSED @ 0.5 MG/HR. PT UNABLE TO FOLLOW SIMPLE COMMANDS, RESPONDS TO TACTILE STIMULI RSS=4 BRISK RESPONSE. PUPILS 2MM SLUGGISH RESPONSE TO LIGHT B/L, PERRL. NO FACIAL DROOP.PT INTUBATED TO VENT, INTACT TO VENT. LIJ, TLC, CDI, PORTS PATENT AND INFUSING. OGT INTACT, AIR AUSCULTATED OVER GASTRIC REGION FOR PLACEMENT WITH XRAY FOR CONFIRMATION. TRACHEA MIDLINE, NO DRAINAGE TO EENT, NO JVD.7.5 ETT, 22 LL. ORAL CARE PROVIDED PER VAP PROTOCOL. VENT SETTINGS AC MODE 30% FIO2, RATE 14, VT 500, PEEP 5. CHEST RISE/FALL SYMMETRIC, E/U BREATHING. LUNG SOUNDS CRACKLES TO BUL, DIMINISHED BASES. S1/S2 SOUNDS AUSCULTATED. CHEST WALL STABLE, NO S/S OF CHEST PAIN.SKIN COLOR CONSISTENT WITH ETHNICITY, CAP REFILL <3 SECONDS X4 EXTREMITIES, PULSES MODERATE TO BUE, WEAK BUT PALPABLE TO BLE. +2 EDEMA TO BLE, +1 EDEMA TO BUE. NS @ 10 ML/HR. SCD'S DO NOT FIT DUE TO PT'S FROG LIKE CONTRACTURES TO BLE.GENERALIZED WEAKNESS, PT ON TURNING SCHEDULE Q2H. ISOGEL/AIR MATTRESS INTACT. Z FLEX BOOTS TO HEELS. NO JOINT SWELLING. PT HAS NOTED SEVERE RA, CHRONIC HX TO BUE/BLE WITH FROG LIKE LEGS, PILLOW PLACED INBETWEEN LEGS.OGT INFUSING JEVITY @ 40 ML/HR, FWF 50 ML Q4H, GRV=10 ML, REPLACED. NO S/S OF N/V. PT TOLERATING FEEDING, AT GOAL RATE.ACTIVE BOWEL SOUNDS X4 QUADRANTS, ABD SOFT/ROUND. NO BM NOTED. HERNIA NOTED TO ABD.F/C DRAINING TO GRAVITY CLEAR YELLOW URINE. NO LABIAL EDEMA/DISCHARGE NOTED. IV TO RIGHT FOREARM, PORT PATENT, NO S/S OF INFILTRATION, DRESSING CDI. SKIN WARM/DRY TO TOUCH. SKIN TEAR TO LLE, CYCLE SPECIALIST. DISCOLORATION TO BUTTOCKS, OPTIFOAM PLACED FOR PROTECTION. BUE ECCHYMOSIS NOTED SANTOS. SCABS TO RLE, DRESSING CDI. FAMILY AT BEDSIDE, UPDATED ON POC AND TEACHING PROVIDED. HOB ELEVATED 30 DEGREES, BED AT LOWEST SETTING, CALL LIGHT WITHIN REACH. WILL CONT TO MONITOR.
--- NOTE | 2018-09-28 20:10 | NUR ---
DR. HOLGUIN AND DR. TOHRNE AT BEDSIDE FOR MSE. UPDATES PROVIDED, QUESTIONS ANSWERED.
[2018-09-29] VITALS (18 sets, daily range): BP systolic 101–130; BP diastolic 43–78
--- NOTE | 2018-09-29 05:25 | NUR ---
PT FOUND WITH SOFT BROWN BM SMALL AMOUNT, PT PERINEUM CLEANED, MARTINEZ CARE PROVIDED, CHUCKS, GOWN, LINEN CHANGED AT THIS TIME, PT CLEANED WITH CHG WIPES. TOTAL CARE PROVIDED.
[2018-09-29 05:37] LABS: CALCIUM 7.8 mg/dL (8.5-10.1); CARBON DIOXIDE 24.3 mmol/L (21-32); CHLORIDE SERUM 100 mmol/L (98-107); CREATININE SERUM 1.1 mg/dL (0.6-1.0); GLUCOSE SERUM 127 mg/dL (74-106); MAGNESIUM 2.5 mg/dL (1.8-2.4); PHOSPHOROUS 3.9 mg/dL (2.5-4.9); POTASSIUM SERUM 4.8 mmol/L (3.5-5.1); SODIUM SERUM 131 mmol/L (136-145)
[2018-09-29 05:38] LABS: BASOPHIL % 0.1 % (0-2); PLATELET COUNT 170 x10^3mcL (130-400); RED BLOOD CELLS 3.45 M/mm3 (4.10-5.10); RED CELL DISTRIBUTION WIDTH 18.9 % (11.5-14.5)
[2018-09-29 05:51] LABS: IRON 18 ug/dL (50-170); TOTAL IRON BINDING CAPACITY 160 ug/dL (250-450)
--- NOTE | 2018-09-29 06:20 | NUR ---
VERSED TITRATED TO 0.25 MG/HR. RSS=4. PT REMAINS INTUBATED AND SEDATED. HOB ELEVATED 30 DEGREES, BED AT LOWEST SETTING. LIJ, TLC, DRESSING CDI, PORTS PATENT WITH MINIMAL RESISTANCE X3. ETT INTACT TO VENT, NO ACUTE CHANGES, OGT INFUSING TUBE FEEDING AT GOAL RATE PER ORDER, NO CHANGES. PT ON FULL DATA STORAGE SPECIALIST WITH CONTINUOUS PULSE OXIMETRY. MARTINEZ CATHETER INTACT AND SECURED, DRAINING TO GRAVITY YELLOW CLEAR URINE. PT SHOWS NO ACUTE SIGNS OF ANY DISTRESS. DAILY CHART CHECKED PROVIDED, WILL ENDORSE CARE TO AM NURSE.
--- NOTE | 2018-09-29 07:15 | NUR ---
DR. ENRIQUEZ AT BEDSIDE FOR MSE. NO NEW ORDERS AT THIS TIME.
--- NOTE | 2018-09-29 07:15 | NUR ---
GAVE REPORT TO RIGO WESTON. UPDATES GIVEN, QUESTIONS ANSWERED.
--- NOTE | 2018-09-29 07:28 | NUR ---
SEDATION TURNED OFF AT THIS TIME PENDING CPAP TRIALS
--- NOTE | 2018-09-29 14:27 | NUR ---
Follow-Up Nutrition Assessment Dx: Respiratory insufficiency Labs: (09/29) Na 131L, K 4.8, BG 127H, BUN 39H, Cr 1.1H, WBC 8.9, H/H 10.8L/32L (trending up) Meds: Colace, Folic acid, Fosamax, Oyster shell Ca, Pro-Amatine, Protonix, NSIV, Sublimaze, Synthroid, Tylenol, Vancocin, Versed, Zosyn, Zofran Nutrition Support: TF with Jevity 1.2 @ goal rate 40 mL/Hr with 50 mL FWF Q4H. Provides 1440 calories, 67 g protein, and 968 mL FW (total fluids including FWF: 1268 mL). Residuals: None documented I and O: (09/29) 2002/475 +1528 (09/28) 2085/845 +1240 (09/27) 3406/520 +2886 TF intake: (09/29) 897 mL (09/28) 911 mL (09/27) 1415 mL; meeting >75% estimated calorie and protein needs Wt: 141# (64.1 kg) Skin: Rt. foot skin tear, discolorations to buttocks, ecchymosis to BUE Tucker: 12 Edema: + to BLE GI: Last BM x 1 (09/29) small BM Per provider progress notes, pt. had an episode of hgB drop and required PRBC transfusion. No longer on vasopressor for hemodynamic stability and BP stable. CPAP trials today 09/29, with sedation turned off for preparation. Pt. seen intubated during visit with OGT in place. Tolerating Jevity running at goal rate 40 mL/Hr and pt. tolerating well without GI distress per RN. Estimated Nutritional Needs Based on body weight 64 kg, Ve: 7.87, T: 36.8 C-Recalculated based on ventilator settings and vital signs. Energy: 1189 kcal/d (PSU 2002 for pts. in ICU with ventilation support) Protein: 64-76 g/d (1.0-1.2 g/kg)-skin breakdown prevention/maintenance Fluid: 1189 ml/d (1 ml/kcal) or per doctor Nutrition Diagnosis 1. Excessive EN infusion r/t current TF regimen order and decreased needs for critical illness AEB current ordered rate and sedative agent meeting >140% estimated calorie needs. (resolved) Intervention/RD recommendations 1. Recommended to continue Jevity 1.2 to 40 mL/Hr with 50 mL/FWF Q4H (total fluids: 1074 mL) to better meet calorie needs. Regimen will provide 1253 calories and 53 g protein, which will meet 105% of estimated calorie needs and 83% estimated lower end of protein needs. Monitor/Evaluate Goal: TF intake at least 75% estimated needs (met) New Goal: TF intake at least 75% estimated needs Monitor: TF tolerance, Labs, GI function, weights, skin integrity F/U in 2-3 days as high risk (10/01-10/02)
--- NOTE | 2018-09-29 14:51 | NUR ---
FULL BED CHANGE PERFORMED AT THIS TIME. PT HAS LOOSE, LIQUID STOOL. OPTIFOAM TO SACRUM CHANGED. DRESSING TO RIGHT POSTERIOR CALF CHANGED AND SILVASORB GEL APPLIED TO ABSORB DISCHARGE. RIGHT KNEE DRESSING CHANGED AND SILVASORB GEL APPLIED. PICTURES TAKEN OF ALL WOUNDS AND PLACED IN CHART
--- NOTE | 2018-09-29 19:05 | NUR ---
RECEIVED PT INTUBATED NOT SEDATED. PT UNABLE TO FOLLOW SIMPLE COMMANDS AT THIS TIME, RESPONDS TO TACTILE STIMULI. PUPILS 4 MM BRISK RESPONSE TO LIGHT B/L. PERRL. NO FACIAL DROOP. PT EYES DO NOT OPEN SPONT, AND DOES NOT TRACK. PT INTUBATED TO VENT, INTACT TO VENT. LIJ, TLC, CDI, PORTS PATENT AND INFUSING. OGT INTACT, AIR AUSCULTATED OVER GASTRIC REGION FOR PLACEMENT WITH XRAY FOR CONFIRMATION. TRACHEA MIDLINE, NO DRAINAGE TO EENT, NO JVD. 7.5 ETT, 22 LL. ORAL CARE PROVIDED PER VAP PROTOCOL. VENT SETTINGS AC MODE 30% FIO2, RATE 14, VT 500, PEEP 5. CHEST RISE/FALL SYMMETRIC, E/U BREATHING. LUNG SOUNDS CLEAR TO BUL, DIMINISHED BASES.S1/S2 SOUNDS AUSCULTATED. CHEST WALL STABLE, NO S/S OF CHEST PAIN. PT ON MIDODRINE OGT 5MG Q8H FOR BP SUPPORT PER EMAR.SKIN COLOR CONSISTENT WITH ETHNICITY, CAP REFILL <3 SECONDS X4 EXTREMITIES, PULSES MODERATE TO BUE, WEAK BUT PALPABLE TO BLE. +2 EDEMA TO BLE, +2 EDEMA TO BUE. NS @ 50 ML/HR. SCD'S TO LEFT LOWER EXTREMITY.GENERALIZED WEAKNESS, PT ON TURNING SCHEDULE Q2H. ISOGEL/AIR MATTRESS INTACT. Z FLEX BOOTS TO HEELS. NO JOINT SWELLING. 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 OGT INFUSING JEVITY @ 40 ML/HR, FWF 50 ML Q4H, GRV=0 ML, REPLACED. NO S/S OF N/V. PT TOLERATING FEEDING, AT GOAL RATE.ACTIVE BOWEL SOUNDS X4 QUADRANTS, ABD SOFT/ROUND. BROWN LIQUID BM, CLEANED. HERNIA NOTED TO ABD.F/C DRAINING TO GRAVITY CLEAR YELLOW URINE. NO LABIAL EDEMA/DISCHARGE NOTED. IV TO RIGHT FOREARM, PORT PATENT, NO S/S OF INFILTRATION, DRESSING CDI. SKIN WARM/DRY TO TOUCH. SKIN TEAR TO LLE, SANTOS. DISCOLORATION TO BUTTOCKS, OPTIFOAM PLACED FOR PROTECTION. BUE ECCHYMOSIS NOTED SANTOS. SCABS TO RLE, DRESSINGS CDI. DTI'S NOTED TO RIGHT AND LEFT FOOT, DRESSING CDI. FAMILY DYNAMICS SUPPORTIVE AND AT BEDSIDE, UPDATED ON POC AND TEACHING PROVIDED. BED AT LOWEST SETTING, CALL LIGHT WITHIN REACH, HOB ELEVATED 30 DEGREES. WILL CONT TO MONITOR.
[2018-09-30] VITALS (15 sets, daily range): BP systolic 95–135; BP diastolic 44–71
--- NOTE | 2018-09-30 01:15 | NUR ---
CENTRAL LINE DRESSING CHANGED USING STERLIE TECHNIQUE. SITE SHOWS NO S/SX OF REDNESS OR DRAINAGE.
[2018-09-30 05:09] LABS: BASOPHIL % 0 % (0-2); PLATELET COUNT 269 x10^3mcL (130-400); RED CELL DISTRIBUTION WIDTH 18.1 % (11.5-14.5)
[2018-09-30 05:18] LABS: CALCIUM 7.9 mg/dL (8.5-10.1); CARBON DIOXIDE 22.1 mmol/L (21-32); CHLORIDE SERUM 98 mmol/L (98-107); CREATININE SERUM 1.1 mg/dL (0.6-1.0); GLUCOSE SERUM 116 mg/dL (74-106); MAGNESIUM 2.2 mg/dL (1.8-2.4); POTASSIUM SERUM 5.3 mmol/L (3.5-5.1); SODIUM SERUM 131 mmol/L (136-145)
--- NOTE | 2018-09-30 05:29 | NUR ---
TECH AT BEDSIDE FOR CXRY.
--- NOTE | 2018-09-30 07:05 | NUR ---
GAVE REPORT TO ENRICO QUAN. UPDATES GIVEN, QUESTIONS ANSWERED.
--- NOTE | 2018-09-30 07:10 | NUR ---
PATIENT WAS INTUBATED WITHOUT SEDATION. PATIENT OPENED HER EYES TO TACTILE AND VERBAL STIMULI AT THE SAME TIMES. VICENTE PUPILS WITH BRISK REACTION, BUT THE PATIENT DID NOT FOLLOW SIMPLE COMMANDS. 7.5 ETT WAS SECURED AT 22CM AT LIPLINE. ETT WAS CONNECTED TO VENT VIA VCV-AC MODE: FIO2 30%, RATE 14, Vt 500, AND PEEP 5. OGT IN PLACE AND SECURED TO ETT. OGT PLACEMENT WAS VERIFIED WITH SOME AIR BOLUS. NO GASTRIC RESIDUAL. OGT CONNECTED TO TF OF JEVITY AT 40CC/HR. FWF 50CC/Q4HR. ORAL CARE WAS PROVIDED TO THE PATIENT. TLC TO LIJ WITH NEW DRESSING INTACT. NS VIA 1 PORT OF TLC. ANOTHER H/L TO RIGHT WRIST. TELE # 2 SHOWED NORMAL SINUS RHYTHMS. F/C TO GRAVITY DRAINING YELLOW URINE. Z-FLEX TO BOTH HEELS. PATIENT WAS ON AIR MATTRESS HEAD OF BED WAS ELEVATED. BED WAS AT LOWEST POSITION. SIDE RAILS UP X3.
--- NOTE | 2018-09-30 08:45 | NUR ---
THE PATIENT HAD LARGE AMOUNT OF LOOSE STOOL; THE PATIENT WAS CLEANSED AND CHANGED GOWN/LINEN. NEW OPTIFOAM WAS APPLIED TO SACRAL AREA. STOOL WAS COLLECTED AND SENT TO LAB FOR OB SCREENING.
--- NOTE | 2018-09-30 09:03 | NUR ---
SCREEN FOR LOW YANY SCALE LATE ENTRY FOR 09/29/18 1400 DURING SCREENING/ASSESSMENT BY WOUND CARE NURSE, PT WITH HEELRAISERS TO BLE, NOTICE OF MULTIPLE DTI TO BILATERAL FEET, PRIMARY RN NOTIFY FOR REASSESSMENT AND PHOTOGRAPHY TO ALL AREAS, ALSO, REQUEST WOUND CARE CONSULT. NO WOUND CARE CONSULT ORDER THIS MORNING, PER PRIMARY RN THIS MORNING THE ULTROSOUNDS SHOWS NEGATIVE OF DVT. PLAN OF CARE DISCUSSED WITH PRIMARY RN. INTEGRIMENTARY: -SKIN TEAR TO RIGHT LOWER LEG 1.5X1.5X0.1CM, WOUND BED RED, MOIST NO S/S OF INFECTION, CARLOS-WOUND SKIN INTACT WITH ECCHYMOSIS -SACRALCOCCYX DRY AND CLEAN, SKIN INTACT WITHDARKER PIGMENTATION -RIGHT LATERAL FOOT TO 5TH TOE PLANTAR AREA DTI 4.5X2.5CM 100% MAROON COLOR -RIGHT KNEE 2X1.5X0.1CM PARTIAL THICKNESS LOSS OF SKIN, WOUND BED IS RED WITH SMALL AMOUNT OF BLEEDING, SURROUNDING SKIN INTACT WITH REDNESS -RIGHT 5TH TOE DTI 1X1 CM 100% MAROON COLOR -RIGHT MEDIAL FOOT TO HALLUX 2X1CM DTI, CARLOS WOUND SKIN INTACT -LEFT MEDIAL FOOT TO HALLUX 1X1 CM DTI, CARLOS WOUND SKIN INTACT -LEFT 5TH TOE TO LATERAL FOOT 4.5X1 CM DTI, CARLOS WOUND SKIN INTACT -LEFT LATERAL HEEL 1X1 CM DTI, CARLOS WOUND SKIN INTACT -UPPER AND LOWER EXTREMITIES WITH +2 EDMA , SKIN VERY THIN AND FRAGILE RECOMMENDATIONS: -CLEANSE RLL AND RIGHT KNEE WITH NS. PAT DRY, APPLY HYDROGEL COVER WITH DRY DRESSING QD AND PRN IF SOILING -APPLY SKIN PREP TO BILATERAL FEET ALL DTI AREAS BID AND LEAVE IT OPEN TO AIR -CONTINUE ON HEELRAISERS TO R/L FEET -TURN AND REPOSITION PATIENT Q 2H -ASSESS AND MONITOR SKIN CONDITION DURING POSITION CHANGE -OFFLOAD BILATERAL HEELS BY PLACING PILLOWS UNDER CALVES AT ALL TIMES, UNLESS OTHERWISE CONTRAINDICATED -PRESSURE REDISTRIBUTION SURFACE THERAPY -KEEP SKIN CLEAN AND DRY AT ALL TIMES COMORBIDITIES RELATED TO SKIN BREAK DOWN AND DELAY WOUND HEALING: HX OF DVT, HOB ELEVATED THE MAJORITY OF THE DAY FOR MEDICAL CONDITION, IMPAIRED MOBILITY AND BOWEL INCONTINENCE.
--- NOTE | 2018-09-30 10:35 | NUR ---
DR. ENRIQUEZ WAS AT BEDSIDE EXAMING THE PATIENT.
--- NOTE | 2018-09-30 11:00 | NUR ---
CENTRAL LINE CARE AND F/C CARE WERE PROVIDED TO THE PATIENT. THE WOUNDS TO RIGHT KNEE AND RIGHT LEG WERE CLEANSED WITH NS, AND PATTED DRY BEFORE HYDROGEL APPLIED AND ISLAND DRESSINGS APPLIED. ALL DTI TO FEET WERE APPLIED WITH SKIN PREP INSTRUCTED.
--- NOTE | 2018-09-30 12:19 | NUR ---
RT WAS AT BEDSIDE CHANGED THE VENT SETTING TO CPAP MODE: 08/12.
--- NOTE | 2018-09-30 12:31 | NUR ---
PATIENT'S RR IN 40'S AND SPO2 89%. PATIENT PLACED BACK ON PREVIOUS SETTINGS AC MODE WITH SPO2 INCREASING TO 96% AND RR NOW 22. SARAH BETH BERNARD CALLED AND MADE AWARE.
--- NOTE | 2018-09-30 13:56 | NUR ---
VERSED WAS INITIATED AT 0.5 MG/HR BECAUSE THE PATIENT HAD FAST BREATHING WITH RR 50S.
--- NOTE | 2018-09-30 14:17 | NUR ---
PATIENT HAD BM WITH MIXTURE OF BLOOD, LIQUID AND SOLID STOOL. THE PATIENT WAS CLEANSED, AND CHANGED GOWN/LINEN AGAIN. DR. HARRIS WAS MADE AWARE.
--- NOTE | 2018-09-30 16:01 | NUR ---
DR HARRIS AT BEDSIDE TO SPEAK WITH PATIENT'S SON CUCO. POC DISCUSSED BEDSIDE. DR HARRIS WANTED FOR PATIENT'S FAMILY TO MEET WITH DR ENRIQUEZ TOMORROW TO DISCUSS AGRESSIVENESS OF CARE. CUCO WILL CONTACT HIS BROTHER AND INFORM DR HARRIS AT TIME THAT WOULD BE GOOD FOR BOTH HE AND HIS BROTHER.
--- NOTE | 2018-09-30 16:03 | NUR ---
THE HR AND BP WERE TRENDING DOWN, AND THE PATIENT WAS RESTING IN BED WITHOUT DISTRESS. VERSED WAS TITRATED FROM 0.5MG/HR DOWN TO 0.25MG/HR.
--- NOTE | 2018-09-30 16:19 | NUR ---
THE EARRINGS FROM BOTH EARS (GOLD COLLOR WITH RED STONE) WERE REMOVED WITH HANDED TO THE PATIENT'S SON :CUCOPHOEBE MAHMOOD WITH WITNESS OF ENRICO JACQUES.
--- NOTE | 2018-09-30 18:27 | NUR ---
PATIENT REMAINED INTUBATED AND ON VENT VIA VCV-AC MODE WITH THE SAME SETTING: FIO2 30%, RATE 14, PEEP 5, AND Vt500. PATIENT WAS ON VERSED AT 0.25MG/HR. TF OF JEVITY AT 40CC/HR AND FWF AT 50CC/Q4HR.
--- NOTE | 2018-09-30 18:39 | NUR ---
THE PATIENT'S SON SPENCER AND DAUGHTER IN LAW, BLACK WERE AT BEDSIDE, TOOK OFF THE GOLD COLORED NECKLACE AND THE GOLD COLORED CROSS FROM THE PATIENT'S NECK. SPENCER AND BLACK KEPT BOTH ITEMS.
--- NOTE | 2018-09-30 19:13 | NUR ---
REPORT WAS GIVEN TO AMADO WISE RN. CONCERNS WERE ADDRESSED.
--- NOTE | 2018-09-30 20:00 | NUR ---
PT REMAINS SEDATED AND UNRESPONSIVE TO VERBAL COMMANDS AT THIS TIME. PT RESPONDS TO PAINFUL STIMULI. NO SIGNS OF HANNON OR DIZZINESS AT THIS TIME. PUPILS BRISK 4MM. NO SIGNS OF CP OR PRESSURE AT THIS TIME. PT REMAINS ON MONITOR SHOWING NSR. PT HAS PALPABLE PULSES BILAT ALL EXTREMITIES BUT FAINT PULSES TO BLE. +2 EDEMA NOTED TO BILAT ALL EXTREMITIES. SCDS IN PLACE. PT HAS DIM BASES. PT HAS ETT TO VENT IN PLACE 22 LL. Vt 500 FIOW 30% PEEP 5 RATE 14. VAP PROTOCOL IN PLACE AND CARRIED OUT. PT HAS OGT IN PLACE WITH JEVITY RUNNING AT 40 ML/HR WITH H20 FLUSH OF 50 ML Q4 HOURS. PT TOLERATES WELL. PT ABD ROUND, SOFT, AND NONTENDER. PT HAS ACTIVE BOWEL SOUNDS. PT HAS VENTRAL HERNIA. PT HAS MARTINEZ IN PLACE DRAINING TO GRAVITY WITH YELLOW URINE NOTED. PT HAS GENERALIZED WEAKNESS WITH CONTRACTED BLE. PT HAS SKIN TEAR TO RLE. MULTIPLE DTI NOTED TO BILAT FEET OFFLOADED AT THIS TIME WITH SKIN PREP APPLIED. ZFLEX BOOTS IN PLACE TO BILAT FEET. PT HAS LIJ IN PLACE RUNNING NS AT 50 ML/HR. PT ON VERSED AT 0.25 MCG. PT REPOSITIONED Q2 HOURS. NO SIGNS OF DISTRESS. WILL CONTINUE TO MONITOR.
--- NOTE | 2018-09-30 21:00 | NUR ---
WOUND CARE PREFORMED ORDERED. NO SIGNS OF ACTIVE BLEEDING. WILL CONTINUE TO MONITOR.
--- NOTE | 2018-09-30 21:40 | NUR ---
TITRATED VERSED FROM 0.25 TO 0.5 FOR INCREASED RESTLESSNESS, AND HIGH PRESSURE ON VENTILATOR.
[2018-10-01] VITALS (16 sets, daily range): BP systolic 93–131; BP diastolic 41–69
--- NOTE | 2018-10-01 00:31 | NUR ---
VERSED REDUCED FROM 0.5 MG TO 0.25 MG. WILL CONTINUE TO MONITOR.
--- NOTE | 2018-10-01 03:00 | NUR ---
PT REMAINS IN BED AT THIS TIME. NO SIGNS OF DISTRESS. WILL CONTINUE TO MONITOR.
[2018-10-01 05:26] LABS: BASOPHIL % 0.1 % (0-2); PLATELET COUNT 346 x10^3mcL (130-400)
[2018-10-01 05:28] LABS: RED CELL DISTRIBUTION WIDTH 18.2 % (11.5-14.5)
[2018-10-01 05:37] LABS: CALCIUM 7.7 mg/dL (8.5-10.1); CARBON DIOXIDE 25.6 mmol/L (21-32); CHLORIDE SERUM 99 mmol/L (98-107); GLUCOSE SERUM 112 mg/dL (74-106); MAGNESIUM 2.1 mg/dL (1.8-2.4); PHOSPHOROUS 3.8 mg/dL (2.5-4.9); POTASSIUM SERUM 4.8 mmol/L (3.5-5.1); SODIUM SERUM 132 mmol/L (136-145)
--- NOTE | 2018-10-01 06:22 | NUR ---
PT REMAINS IN BED AT THIS TIME SEDATED. PT REMAINS ON VENT, AND TOLERATING WELL. PT REPOSTIIONED Q2 HOURS. PT HEELS KEPT ELEVATED WITH ZFLEX BOOTS IN PLACE. PT PERIODICALLY SHOWS RESISTANCE TO THE VENT BUT REMAINS ON VERSED AND TOLERATES WELL. PT HAD TWO BM'S DURING THE SHIFT THAT WERE SOFT. NO SIGNS OF DISTRESS. WILL ENDORSE TO DAY NURSE.
--- NOTE | 2018-10-01 07:20 | NUR ---
THE PATIENT WAS INTUBATED AND SEDATED WITH VERSED AT 0.25MG/HR. THE PATIENT FROWNED TO TACTILE STIMULI AND VICENTE PUPILS WITH BRISK REACTION TO LIGHT. HOWEVER, PATIENT DID NOT FOLLOW SIMPLE COMMANDS. THE SEDATION WAS HELD FOR SEDATION VACATION. 7.5 ETT WAS SECURED AT 22CM AT LIPLINE. ETT WAS CONNECTED TO VENT VIA AC MODE: FIO2 30%, RATE 14, Vt 500 AND PEEP 5. PATIENT HAD EPISODES OF FAST BREATHING OVER THE VENT WITH RR>20S. OGT WAS SECURED TO ETT AND THE PLACEMENT WAS VERIFIED WITH SOME AIR BOLUS. NO GASTRIC RESIDUAL NOTED AT THIS TIME. OGT CONNECTED TO TF OF JEVETY 1.2 AT 40CC/HR AND FWF OF 50CC/Q4HR. TLC AT [facility] WITH DRESSING INTACT. ANOTHER H/L TO LFA. MARTINEZ CATH TO GRAVITY DRAINING SCANT AMOUNT OF YELLOW URINE. Z-FLEX IN PLACE TO BOTH HEELS. PATIENT WAS ON AIR MATTRESS. BUE AND BLE WERE ELEVATED ON PILLOWS. HEAD OF BED WAS ELEVATED. BED WAS AT LOWEST POSITION. SIDE RAILS UP X3.
--- NOTE | 2018-10-01 07:22 | NUR ---
DR. ENRIQUEZ IN TO SEE THE PATIENT. UPDATE WAS PROVIDED TO THE DOCTOR.
--- NOTE | 2018-10-01 07:30 | NUR ---
THE PATIENT'S BREATHING WAS FAST WITH RR >30S. SEDATION WAS RESUMED AT 0.25MG/HR.
--- NOTE | 2018-10-01 09:35 | NUR ---
DR. HARRIS WAS AWARE OF THE CXR RESULT THIS MORNING.
--- NOTE | 2018-10-01 09:50 | NUR ---
DR. NEFF IN TO SEE THE PATIENT. UPDATE WAS PROVIDED TO THE DOCTOR.
--- NOTE | 2018-10-01 10:12 | NUR ---
RECEIVED ORDER FROM DR. HARRIS: LASIX 20MG IVP X1. HOWEVER, DR. NEFF WANTED TO SEE THE PATIENT'S ECHO RESULT FIRST AND HOLD THE LASIX AT THIS TIME DUE TO THE PATIENT'S BP 103/51. LASIX WAS ON HOLD.
--- NOTE | 2018-10-01 10:12 | NUR ---
NURSE PRACTITIONER ADULT WAS AT BEDSIDE TO DO ECHO FOR THE PATIENT.
--- NOTE | 2018-10-01 12:00 | NUR ---
ATTEMPTED CPAP TRIAL 19/01 AT THIS TIME. HR INCREASED FROM 60-82. PT HAD PERIODS OF INCREASED WOB AND RESP RATE UP TO 37. PT PLACED BACK ON AC MODE. RN AWARE. WILL MONITOR.
--- NOTE | 2018-10-01 12:17 | NUR ---
DR. IBRAHIM IN TO SEE THE PATIENT. UPDATE WAS PROVIDED TO THE DOCTOR.
--- NOTE | 2018-10-01 12:36 | NUR ---
MICKIE THROUGH 39 PHARMCIST NOTIFIED. RODDY SCANLON TO HOLD PETERO.
--- NOTE | 2018-10-01 14:20 | NUR ---
LATE ENTRY: AT 1055: THE WOUNDS AT RIGHT KNEE AND RIGHT LEG WERE CLEANSED WITH NS, PATTED DRY AND APPLIED HYDROGEL BEFORE ISLAND DRESSING APPLIED TO THE SITES. ALL DTI TO FEET WERE APPLIED WITH SKIN PREP.
--- NOTE | 2018-10-01 14:58 | NUR ---
Follow-Up Nutrition Assessment Dx: Respiratory insufficiency Labs: (10/01) Na 132L, K 4.8, BG 112H, BUN 36H, Cr 1.0, WBC 10.3, H/H 7.5L/22L Meds: Colace, Ferrous sulfate, Folic acid, Fosamax, Lasix, Oyster shell Ca, Pro-Amatine, Protonix, NSIV, Sublimaze, Synthroid, Tylenol, Vancocin, Versed, Zosyn, Zofran Nutrition Support: TF with Jevity 1.2 @ goal rate 40 mL/Hr with 50 mL FWF Q4H. Provides 1440 calories, 67 g protein, and 968 mL FW (total fluids including FWF: 1268 mL). Residuals: Minimal per RN I and O: (10/01) 2973/1800 +1173 (09/30) 2508/675 +1833 (09/29) 2003/475 +1528; pt. mostly in positive fluid balance, weight fluctuations are expected. TF intake: (10/01) 920 mL (09/30) 911 mL (09/29) 897 mL; meeting >75% estimated calorie and protein needs Wt: 141# (64.1 kg) admission weight Skin: Rt. foot skin tear, discolorations to buttocks, ecchymosis to BUE Tucker: 12 Edema: +# to BLE and BUE GI: Last BM x 1 (09/30) small, loose BM Per provider progress notes, pt. failed multiple weaning trials and is not tolerating mechanical ventilation well at this time. Pt. prognosis poor, and providers will meet with family members to discuss further care. Pt. seen intubated and sedated with Versed during visit with OGT in place. Minimal response to tactile stimuli per RN. Tolerating Jevity running at goal rate 40 mL/Hr without GI distress per RN. Minimal residuals noted. Estimated Nutritional Needs Based on body weight 64 kg, Ve: 7.4, T: 36.7 C-Recalculated based on ventilator settings and vital signs. Energy: 1157 kcal/d (PSU 2002 for pts. in ICU with ventilation support) Protein: 64-76 g/d (1.0-1.2 g/kg)-skin breakdown prevention/maintenance Fluid: 1157 ml/d (1 ml/kcal) or per doctor Nutrition Diagnosis 1. Excessive EN infusion r/t current TF regimen order and decreased needs for critical illness AEB current ordered rate and sedative agent meeting >140% estimated calorie needs. (resolved) Intervention/RD recommendations 1. Recommended to continue Jevity 1.2 to 40 mL/Hr with 50 mL/FWF Q4H (total fluids: 1074 mL) to better meet calorie needs. Regimen will provide 1253 calories and 53 g protein, which will meet 108% of estimated calorie needs and 83% estimated lower end of protein needs. Monitor/Evaluate Goal: TF intake at least 75% estimated needs (met) New Goal: TF intake at least 75% estimated needs Monitor: TF tolerance, Labs, GI function, weights, skin integrity F/U in 2-3 days as high risk (10/03-10/04)
--- NOTE | 2018-10-01 15:23 | NUR ---
THE PATIENT WAS GIVEN A BATH; CENTRAL LINE SITE CARE AND F/C CARE WERE PROVIDED TO THE PATIENT PER PROTOCOL.
--- NOTE | 2018-10-01 15:24 | NUR ---
DR. ENRIQUEZ AND DR. HARRIS ARE HAVING THE MEETING WITH THE PATIENT'S FAMILY TO DISCUSS THE PLAN OF CARE FOR THE PATIENT.
--- NOTE | 2018-10-01 15:41 | NUR ---
BOTH PATIENT'S SONS: SPENCER AND CUCO WERE AT BEDSIDE AND REMOVED THE GOLD COLORED BRACELET AND TOOK IT WITH THEM WHEN THE LEFT THE ROOM.
--- NOTE | 2018-10-01 18:30 | NUR ---
THE PATIENT REMAINED ON VENT VIA VCV-AC MODE WITH THE SAME SETTING: FIO2 30%, RATE 14, Vt 500, PEEP 5. PATIENT REMAINED ON SEDATION WITH VERSED AT 0.25MG/HR. PATIENT TOLERATED WITH TF OF JEVITY 1.2 AT 40CC/HR AND FLUSHED WITH WATER 50CC/Q4HR. PATIENT WAS TURNED Q2HR/PRN IN BED. DUE TO LOW YANY SCALE SCORE 12 AND HIGH RISK FOR SKIN DAMAGE.
--- NOTE | 2018-10-01 19:19 | NUR ---
REPORT WAS GIVEN TO ARLENE JOSHI RN. CONCERNS WERE ADDRESSED.
--- NOTE | 2018-10-01 19:35 | NUR ---
DROWSY BUT AROUSABLE. OPENS EYES TO VERBAL STIMULI. PERRLA. TELE MONITOR READING SR. LUNGS DIMINISHED BILATERALLY ON MECH. VENT. A/C, VT 500, FIO2 30%, PEEP 5, RATE 14. TRACHEA MIDLINE. PULSES PALPABLE. 3+ EDEMA TO BUE AND BLE. BOWEL SOUND ACTIVE, SOFT, NONDISTENDED. OGT FEEDING RUNNING JEVITY @ 40 ML/HR WITH FWF 40 ML Q4H, RESIDUAL <10 ML. PROTRUSION NOTED TO MID LOWER ABD. MARTINEZ CATHETER IN PLACE DRAINING YELLOW URINE. BED BOUND. ON AIR MATTRESS AND TO BE TURNED Q2H. BUE AND BLE CONTRACTED. OPTIFOAM TO SACRUM AND BILAT HIPS, CDI. BILAT HEELS WITH FLOATERS IN PLACE. LIJ, ALL PORTS PATENT, DRESSING CDI. SL TO RFA, PATENT. PT FREE OF MOANING/FACIAL GRIMACE. HOB @ 45 DEGREES. BED IN LOWEST POSITION, 2 SIDE RAILS UP, CALL LIGHT IN REACH. INSTRUCTED TO CALL FOR ASSISTANCE.
[2018-10-02] VITALS (17 sets, daily range): BP systolic 80–139; BP diastolic 36–64
--- NOTE | 2018-10-02 00:05 | NUR ---
REASSESSED, PT WITH NO ACUTE CHANGES. ORAL CARE PERFORMED. SKIN PREP APPLIED TO BILAT FEET, RESIDENTIAL MORTGAGE UNDERWRITER. NO ACUTE DISTRESS NOTED. WILL CONTINUE TO MONITOR.
[2018-10-02 05:38] LABS: BASOPHIL % 0.1 % (0-2)
[2018-10-02 05:54] LABS: PLATELET COUNT 454 x10^3mcL (130-400)
--- NOTE | 2018-10-02 06:00 | NUR ---
COMPLETE BED BATH GIVEN, HAIR WASHED. ALL LINENS CHANGED. MARTINEZ CARE DONE. NEW FEEDING WITH NEW TUBING STARTED. ORAL CARE PERFORMED. -500 ML MARTINEZ OUTPUT. ONE SMALL LOOSE BM OVERNIGHT. PT CONTINUES TO OPEN EYES TO VERBAL STIMULI. NO ACUTE DISTRESS NOTED. NO ACUTE CHANGES. WILL ENDORSE TO ONCOMING RN.
[2018-10-02 06:06] LABS: CALCIUM 7.8 mg/dL (8.5-10.1); CARBON DIOXIDE 25.6 mmol/L (21-32); CHLORIDE SERUM 100 mmol/L (98-107); GLUCOSE SERUM 100 mg/dL (74-106); MAGNESIUM 2.1 mg/dL (1.8-2.4); PHOSPHOROUS 3.5 mg/dL (2.5-4.9); POTASSIUM SERUM 5.2 mmol/L (3.5-5.1); SODIUM SERUM 132 mmol/L (136-145)
--- NOTE | 2018-10-02 07:35 | NUR ---
RFA PERIPHERAL IV DISCONTINUED. SITE WNL. CATHETER TIP INTACT. GAUZE APPLIED AND TAPED. NO S/SX OF DISTRESS. PT TOLERATED WELL
--- NOTE | 2018-10-02 08:09 | NUR ---
DR. NEFF AT BEDSIDE. UPDATED ON PT'S STATUS AND CONDITION. STS HE WILL INPUT LASIX ORDERS FOR SWELLING.
--- NOTE | 2018-10-02 08:42 | NUR ---
DIALYSIS NURSE AT BEDSIDE
--- NOTE | 2018-10-02 09:40 | NUR ---
DR. HARRIS MADE AWARE OF POTASSIUM AND PLATELETS LAB
--- NOTE | 2018-10-02 15:28 | NUR ---
PT CHEWING ON ETT. EDUCATED NOT TO CHEW. PT REMAINS CHEWING. VERSED TITRATED FROM 0.25 MG/HR TO 0.5 MG/HR. RSS 3. WILL CONTINUE TO MONITOR
--- NOTE | 2018-10-02 15:54 | NUR ---
WOUND CARE PERFORMED AT THIS TIME. WOUNDS CLEANSED WITH NS AND PATTED DRY. HYDROGEL AND DRESSINGS REAPPLIED. OPTIFOAM REMAINS INTACT TO SACRUM. PT TOLERATED WELL
--- NOTE | 2018-10-02 19:15 | NUR ---
RECEIVED PT INTUBATED AND SEDATED ON VERSED @ 0.5 MG/HR. RSS=4 BRISK RESPONSE TO STIMULI. PT UNABLE TO FOLLOW SIMPLE COMMANDS AT THIS TIME. EYES OPE SPONT. PUPILS 4MM BRISK RESPONSE TO LIGHT BILATERALLY. GAG REFLEX PRESENT WHEN SUCTIONED. NO FACIAL DROOP NOTED. PT INTUBATED TO VENT, INTACT AND SECURED. LIJ, TLC, CDI PORTS PATENT AND INFUSING. OGT INTACT AND SECURED, AIR AUSCULTATED OVER GASTRIC REGION FOR PLACEMENT AND CONFIRMED BY CXR FOR PLACEMENT. TRACHEA MIDLINE, NO DRAINGE TO EENT, NO JVD. ETT 7.5, 22 LL. ORAL CARE PROVIDED PER VAP PROTOCOL. VENT SETTINGS AC MODE FIO2 30%, RATE 14, VT 500, PEEP5. CHEST RISE/FALL SYMMETRIC, E/U BREATHING. LUNG SOUNDS CLEAR TO BUL, DIMINISHED BASES. S1/S2 SOUNDS AUSCULTATED, CHEST WALL STABLE, NO S/S OF CHEST PAIN. FULL CONDITIONER TUMBLER IN PLACE. CAP REFILL <3 SECONDS X4 EXTREMITIES, PULSES MODERATE TO BUE, WEAK BUT PALPABLE TO BLE. EDEMA +1 TO BUE, +2 TO BLE. NS @ 20 ML/HR. SCD TO LLE, WOUNDS TO RLE. EXTREMITIES HAS FLUSHED APPEARANCE. GENERALIZED WEAKNESS, PT ON TURNING SCHEDULE Q2H. ISOGEL/AIR MATTRESS INTACT. Z FLEX BOOTS TO HEELS. NO JOINT SWELLING. PT HAS NOTED SEVERE RA, CHRONIC HX TO BUE/BLE WITH FROG LIKE LEGS, PILLOW PLACED INBETWEEN LEGS OGT INFUSING JEVITY @ 40 ML/HR, FWF 50 ML Q4H, GRV=0 ML. NO S/S OF N/V. PT TOLERATING FEEDING, AT GOAL RATE. ACTIVE BOWEL SOUNDS X4 QUADRANTS, ABD SOFT/ROUND. LOOSE BROWN BM NOTED, PERICARE AND PT CLEANED. HERNIA NOTED TO PT ABDOMEN. F/C DRAINING TO GRAVITY CLEAR YELLOW URINE. NO LABIAL EDEMA/DISCHARGE NOTED SKIN WARM/DRY TO TOUCH. ERYTHEMA/ECCHYMOSIS NOTED TO BUE/BLE. RIGHT THUMB DISCOLORATION NOTED, SANTOS. OPTIFOAM TO SACRUM/COCCYX FOR PROTECTION WITH NOTED DISCOLORATION TO SACRUM. RIGHT KNEE WOUND, DRESSING CDI. RIGHT POSTERIOR CALF WOUND, DRESSING CDI. RIGHT/LEFT FOOT MULTIPLE DTI'S WITH ZFLEX BOOTS IN PLACE. HOB ELEVATED 30 DEGREES, BED AT LOWEST SETTING, CALL LIGHT WITHIN REACH. WILL CONT TO MONITOR.
[2018-10-03] VITALS (18 sets, daily range): BP systolic 79–120; BP diastolic 39–64
--- NOTE | 2018-10-03 05:00 | NUR ---
PT CLEANED AT THIS TIME, CHUCKS, GOWN AND SHEETS CHANGED. MARTINEZ CARE PROVIDED TO PT. WOUND CARE PROVIDED PER RECCOMENDATION OF WOUND CONSULT.
[2018-10-03 05:19] LABS: BASOPHIL % 0.1 % (0-2)
--- NOTE | 2018-10-03 05:38 | NUR ---
MANAGEMENT SUPERVISOR AT [facility]
[2018-10-03 05:43] LABS: RED CELL DISTRIBUTION WIDTH 17.4 % (11.5-14.5)
[2018-10-03 05:44] LABS: PLATELET COUNT 569 x10^3mcL (130-400)
[2018-10-03 05:46] LABS: CALCIUM 7.6 mg/dL (8.5-10.1); CARBON DIOXIDE 26.5 mmol/L (21-32); CHLORIDE SERUM 100 mmol/L (98-107); CREATININE SERUM 1.1 mg/dL (0.6-1.0); GLUCOSE SERUM 108 mg/dL (74-106); PHOSPHOROUS 3.4 mg/dL (2.5-4.9); SODIUM SERUM 133 mmol/L (136-145)
--- NOTE | 2018-10-03 05:55 | NUR ---
DR. GRIMALDO AT BEDSIDE FOR MSE. UPDATES PROVIDED. NO NEW ORDERS.
--- NOTE | 2018-10-03 10:45 | NUR ---
PATIENT ROUNDS WITH DR. FOLEY AND RESIDENTS. PRIMARY NURSE AND CHARGE NURSE AT BEDSIDE. UPDATES PROVIDED AND POC DISCUSSED. WILL CONTINUE TO MONITOR.
--- NOTE | 2018-10-03 11:27 | NUR ---
PT'S NIECE, PATRICK, AT BEDSIDE. UPDATED ON PT'S STATUS AND CONDITION. NIECE ASKING REGARDING WHEN PT WOULD HAVE ETT REMOVED. INFORMED OF POOR CPAP TRIALS AND INABILITY TO WEAN WITHOUT PT RESPONDING TO COMMANDS. INFORMED OF POSSIBLE NEED FOR TRACHEOSTOMY AND THAT PLAN WAS TO HAVE A DECISION FROM FAMILY MEMBERS ON FRIDAY. PATRICK VERBALIZES UNDERSTANDING.
--- NOTE | 2018-10-03 12:36 | NUR ---
PT'S DAUGHTER IN LAW AT BEDSIDE. UPDATED ON PT'S STATUS AND CONDITION. ALL QUESTIONS ADDRESSED. INFORMED OF POOR CPAP TRIALS. VERBALIZES UNDERSTANDING.
--- NOTE | 2018-10-03 12:40 | NUR ---
DR. VENEGAS AT BEDSIDE. UPDATED ON PT'S STATUS AND CONDITION. NO NEW ORDERS AT THIS TIME.
--- NOTE | 2018-10-03 15:22 | NUR ---
ONE LARGE LOOSE BM CHANGED AT THIS TIME. NEW OPTIFOAM APPLIED FOR PROPHYLACTIC PROTECTION. WOUND DRESSINGS CHANGED PER PROTOCOL AT THIS TIME. MARTINEZ CARE PROVIDED. PT TOLERATED WELL
--- NOTE | 2018-10-03 18:53 | NUR ---
ETT 7.5 WITH 22 @ LL ATTACHED TO VENT VCV AC MODE SETTINGS: VT 500, RR 14 PEEP 5 AND FIO2 30%. CHEST EXPANSION SYMM, BREATHING E/U AND REGULAR EFFORT. SEDATED ON VERSED @ 0.5 MG/HR. OPENS EYES SPONT, DOES NOT FOLLOW COMMANDS AND RESPONDS TO VERBAL STIMULI. OGT ATTACHED TO JEVITY TF @ 40 ML/HR WITH 50 ML FWF Q4H. TOLERATING WEL. LOW RESIDUALS THROUGHOUT SHIFT. LIJ TLC CVC INFUSING, SITE WNL AND DRESSING CDI. NS @ 20 ML/HR. ABD SOFT, ROUND. VENTRAL HERNIA. ONE LARGE, LOOSE BM THIS SHIFT. F/C IN PLACE, DRAINING TO GRAVITY AND NO DEPENDENT LOOPS. DIURESED 1850 ML URINE THIS SHIFT. -876 FLUID BALANCE. SCD TO LLE. OPTIFOAM PLACED PROPHYLACTICALLY TO SACRUM. WOUND CARE PERFORMED PER ORDERS. ALL DRESSINGS CDI. +1 BUE AND BILATERAL FOOT EDEMA. EXTREMITIES ECCHYMOTIC, FLUSHED, WARM AND DRY. BED IN LOWEST POSITION, SIDERAILS UP. NO RESTRAINTS IN USE. 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 CONTRACTURES TO BILATERAL FINGERS. Z-FLEX BOOTS IN PLACE. NIECE AND DAUGHTER IN LAW VISITED THIS SHIFT. UPDATED ON PT'S PLAN OF CARE AND PROGNOSIS
--- NOTE | 2018-10-03 19:25 | NUR ---
REC'D REPORT FROM RIGO WESTON TO ASSUME CARE. PT INTUBATED AND SEDATED ON VERSED 0.5 MG/HR WITH RSS 5. PT ABLE TO OPEN EYES TO TACTILE STIMULI. PERRLA NOTED; PUPILS 3MM BRISK VICENTE. 7.5 ETT SECURED AT 22 CM @ LL. NO JVD NOTED. TRACHEA MIDLINE. ETT TO VENT: AC RATE 14, TV 500, PEEP 5, FIO2 30%. CHEST RISE EQUAL AND SYMMETRICAL. RESPS E/U. LUNG SOUNDS COARSE CRACKLES TO BUL, DIMINISHED VICENTE BASES. OGT INTACT AND SECURED INFUSING JEVITY 1.2 @ 40ML/HR FWF 50ML Q4H; GRV=5ML REPLACED. LIJ CVC INTACT, PORTS PATENT, DSG CDI. IVF NS INFUSING @ 20ML/HR. PULSES PALPABLE AND WEAK X4. BUE/BLE PITTING EDEMA 4+. SCDS IN PLACE TO LLE. FIREWALL ADMINISTRATOR IN PLACE SHOWING NSR. CHEST WALL STABLE. SKIN WARM DRY TO TOUCH. F/C INTACT AND DRAINING VIA GRAVITY YELLOW URINE. NO VAGINAL OR RECTAL BLEEDING NOTED. PT BEDBOUND; AIR MATTRESS IN PLACE; BUE/BLE CONTRACTURES NOTED. Z-FLEX BOOTS IN PLACE. TURNED AND REPOSITIONED Q2H FOR SKIN MANAGEMENT. ALL NEEDS MET AT THIS TIME. WILL CONTINUE TO MONITOR.
--- NOTE | 2018-10-03 20:30 | NUR ---
FABIANO RT AT BEDSIDE PROVIDING BREATHING TX.
--- NOTE | 2018-10-03 23:30 | NUR ---
PT SEEN WITH EYES CLOSED. NO ACUTE DISTRESS NOTED. RESPS E/U. FLACC=0. REPOSITIONED AT THIS TIME.
[2018-10-04] VITALS (17 sets, daily range): BP systolic 86–153; BP diastolic 45–62
--- NOTE | 2018-10-04 04:30 | NUR ---
LAB AT BEDSIDE FOR BLOOD DRAW.
[2018-10-04 04:59] LABS: BASOPHIL % 0.2 % (0-2)
--- NOTE | 2018-10-04 05:00 | NUR ---
TOTAL BED BATH PROVIDED WITH CHG WIPES; NO BM NOTED; F/C CARE PROVIDED; VAP CARE PROVIDED; LINENS CHANGED; PT REPOSITIONED TO COMFORT. Z-FLEX BOOTS IN PLACE WITH LLE SCD. PILLOW PLACED IN BETWEEN LEGS.
[2018-10-04 05:19] LABS: RED CELL DISTRIBUTION WIDTH 16.2 % (11.5-14.5)
[2018-10-04 05:20] LABS: PLATELET COUNT 648 x10^3mcL (130-400)
[2018-10-04 05:48] LABS: CALCIUM 7.7 mg/dL (8.5-10.1); CARBON DIOXIDE 26.2 mmol/L (21-32); CHLORIDE SERUM 100 mmol/L (98-107); GLUCOSE SERUM 108 mg/dL (74-106); MAGNESIUM 1.9 mg/dL (1.8-2.4); PHOSPHOROUS 3.6 mg/dL (2.5-4.9); POTASSIUM SERUM 5.5 mmol/L (3.5-5.1); SODIUM SERUM 134 mmol/L (136-145)
--- NOTE | 2018-10-04 05:53 | NUR ---
REPORTED K+ LEVEL 5.[address] GRIMALDO, AWAITING FOR FURTHER ORDERS.
--- NOTE | 2018-10-04 07:40 | NUR ---
SMALL BLOOD CLOT SUCTIONED FROM ETT. SARAH BETH BERNARD, MADE AWARE. O2 SAT 99% ON FIO2 30%.
--- NOTE | 2018-10-04 08:15 | NUR ---
SPOKE WITH DR. GRIMALDO. INFORMED OF POTASSIUM LEVEL, TRENDING PLATELETS, AND ASKED REGARDING IF ZOSYN WILL BE CONTINUED. STS HE WILL INPUT ORDERS FOR KAYEXELATE AND REINITIATE ZOSYN THERAPY. AWAITING ORDERS
--- NOTE | 2018-10-04 12:50 | NUR ---
DR. GRIMALDO PAGED REGARDING PLACING ORDERS FOR ELEVATED POTASSIUM AND TRENDING PLATELETS.
--- NOTE | 2018-10-04 15:00 | NUR ---
Follow-up Nutrition Assessment Dx:ALOC and Respiratory failure Labs:(10/04) Na:134L, K:5.5H, BH, BUN:31H, Ca:7.7L, H/H:7.5/23L Meds: Colace, Ferrou sulfate, Folic acid, Fosomax, Oyster shell calcium, Pro-amatine, Protonix, NS IV, Synthroid, Tylenol Vancomycin, Zofran, Zosyn, Heparin, Current Nutrition Support: Jevity 1.2 at 40ml/hr, FWF:50ml q 4 hr via NGT. TF intake: (10/02)885ml (10/03) 921ml (10/04)939ml TF intake x 3 days: 915ml=95% estimated needs I/O: (10/02)2483/1125 (+1358ml) (10/03) 2173/2000(+173ml)(10/04)1931/2550 (-619ml) Residuals: (10/02) <10ml, (10/03)15ml (10/04)10ml Weights: (10/01) 141#, 64.1kg admission weight (10/04) 76.5kg weight difference possibly due to fluid shifts /equipment on bed. Skin: per wound RN 09/30: skin tear to right lower leg, right lateral foot to 5th toe plantar area DTI Edema: +1 BLE and trace to BUE Last BM: 10/03 Per progress note 10/04, plan is for a family meeting tomorrow at 1600 to discuss goals of care. Estimated Nutritional Needs unchanged from prior assessment:64kg Vent in L/min: 7.4, Temperature"36.7C Energy: 1157kcal/day (PSU 2002 for vent support ) Protein: 64-76g/day (1.0-1.2g/kg for maintenance) Fluid: 1157ml/day (1ml/kcal) or per doctor Nutrition Diagnosis 1. Excessive EN infusion related to TF regimen ordered and decreased needs for critical illness AEB current ordered rate and sedative agent >140% estmated kcal needs (resolved). Intervention 1. Recommend continue Jevity 1.2 at 40ml/hr, FWF:50ml q 4 hr via NGT. This provides 1253kcal, 53g protein adn 1074ml fluid daily. This meets 108% caloic needs and 83% prorein needs. Monitor/Evaluate Previous goal: TF intake at least 75% of estimated needs (met) Goal: TF intake at least 75% of estimated needs Monitor: TF intake/tolerance, Labs, GI function and weights F/U in 2-3 days as high risk: 10/06-
--- NOTE | 2018-10-04 17:34 | NUR ---
WOUND CARE PROVIDED AT THIS TIME PER ORDERS. DRESSINGS CDI
--- NOTE | 2018-10-04 19:25 | NUR ---
REC'D REPORT FROM RIGO WESTON TO ASSUME CARE. PT INTUBATED AND SEDATED ON VERSED 0.5 MG/HR WITH RSS 5. PT ABLE TO OPEN EYES TO TACTILE STIMULI. PERRLA NOTED; PUPILS 3MM BRISK VICENTE. 7.5 ETT SECURED AT 22 CM @ LL. NO JVD NOTED. TRACHEA MIDLINE. ETT TO VENT: AC RATE 14, TV 500, PEEP 5, FIO2 30%. CHEST RISE EQUAL AND SYMMETRICAL. RESPS E/U. LUNG SOUNDS COARSE CRACKLES TO BUL, DIMINISHED VICENTE BASES. OGT INTACT AND SECURED INFUSING JEVITY 1.2 @ 40ML/HR FWF 50ML Q4H; GRV=5ML REPLACED. LIJ CVC INTACT, PORTS PATENT, DSG CDI. IVF NS INFUSING @ 20ML/HR. PULSES PALPABLE AND WEAK X4. BUE/BLE PITTING EDEMA 4+. SCDS IN PLACE TO LLE. CRIMINAL JUSTICE SOCIAL WORKER IN PLACE SHOWING NSR. CHEST WALL STABLE. SKIN WARM DRY TO TOUCH. F/C INTACT AND DRAINING VIA GRAVITY YELLOW URINE. NO VAGINAL OR RECTAL BLEEDING NOTED. PT BEDBOUND; AIR MATTRESS IN PLACE; BUE/BLE CONTRACTURES NOTED. Z-FLEX BOOTS IN PLACE. TURNED AND REPOSITIONED Q2H FOR SKIN MANAGEMENT. ALL NEEDS MET AT THIS TIME. WILL CONTINUE TO MONITOR.
--- NOTE | 2018-10-04 23:30 | NUR ---
PT SEEN SLEEPING WITH EYES CLOSED. FLACC=0. VAP CARE PROVIDED. REPOSITIONED AT THIS TIME.
[2018-10-05] VITALS (17 sets, daily range): BP systolic 88–133; BP diastolic 40–83
--- NOTE | 2018-10-05 05:00 | NUR ---
LAB AT BEDSIDE FOR BLOOD DRAW.
--- NOTE | 2018-10-05 05:12 | NUR ---
TOTAL BED BATH PROVIDED WITH CHG WIPES; LARGE LOOSE STOOL NOTED; LINENS CHANGED; F/C CARE PROVIDED; VAP CARE PROVIDED; REPOSITIONED TO COMFORT.
[2018-10-05 05:47] LABS: CALCIUM 8.1 mg/dL (8.5-10.1); CARBON DIOXIDE 26.3 mmol/L (21-32); CHLORIDE SERUM 97 mmol/L (98-107); GLUCOSE SERUM 104 mg/dL (74-106); MAGNESIUM 1.7 mg/dL (1.8-2.4); POTASSIUM SERUM 4.8 mmol/L (3.5-5.1); SODIUM SERUM 127 mmol/L (136-145)
[2018-10-05 05:48] LABS: BASOPHIL % 0.2 % (0-2)
[2018-10-05 05:53] LABS: RED CELL DISTRIBUTION WIDTH 16.5 % (11.5-14.5)
[2018-10-05 05:57] LABS: PLATELET COUNT 777 x10^3mcL (130-400)
--- NOTE | 2018-10-05 06:34 | NUR ---
REPORTED LAB PLT [address] HOLGUIN, AWAITING FOR FURTHER ORDERS.
--- NOTE | 2018-10-05 07:15 | NUR ---
THE PATIENT WAS INTUBATED AND SEDATED WITH VERSED AT 0.5 MG/HR. THE PATIENT RESPONSIVE TO TACTILE STIMULUS BUT NOT FOLLOW SIMPLE COMMANDS. VICENTE PUPILS WITH BRISK REACTION TO LIGHT. 7.5 ETT WAS SECURED AT 22CM AT LIPLINE. ETT WAS CONNECTED TO VENT VIA VCV-AC MODE: FIO2 25%, RATE 14, Vt 500, PEEP 5. OGT WAS IN PLACE AND SECURED TO ETT. OGT PLACEMENT WAS VERIFIED WITH SOME AIR BOLUS, WHICH WAS ASPIRATED WITH A SYRINGE. NO GASTRIC RESIDUAL. OGT CONNECTED TO TF OF JEVITY 1.2 AT 40CC/HR AND FREE WATER FLUSHED AT 50CC/Q4HR. TLC TO LEFT IJ WITH DRESSING IN PLACE. NS AT 20CC/HR. MARTINEZ CATH TO GRAVITY DRAINING YELLOW URINE. PATIENT WAS ON AIR MATTRESS, AND X-FLEX IN PLACE. BED WAS AT LOWEST POSITION. HEAD OF BED WAS ELEVATED. BUE AND BLE WERE ELEVATED ON PILLOWS.
--- NOTE | 2018-10-05 08:53 | NUR ---
DR. NEFF IN TO SEE THE PATIENT. UPDATE WAS PROVIDED TO THE DOCTOR.
--- NOTE | 2018-10-05 10:45 | NUR ---
DR. ENRIQUEZ IN TO SEE THE PATIENT.
--- NOTE | 2018-10-05 12:11 | NUR ---
NEW BOTTLE OF FORMULA AND TUBING WERE CHANGED FOR THE PATIENT.
--- NOTE | 2018-10-05 15:00 | NUR ---
CENTRAL LINE CARE AND MARTINEZ CARE WERE PROVIDED TO THE PATIENT. THE DRESSING AT CENTRAL LINE SITE WAS CHANGED WITH ASEPTIC TECHNIQUE.
--- NOTE | 2018-10-05 16:10 | NUR ---
DR. HARRIS, DR. ENRIQUEZ AND THE CHARGE NURSE ARE HAVING MEETING WITH THE FAMILY.
--- NOTE | 2018-10-05 16:15 | NUR ---
DR ENRIQUEZ, DR HARRIS, MYSELF AND PATIENT'S FAMILY IN CONFERENCE ROOM FOR FAMILY MEETING. POC DISCUSSED INCLUDING PALLIATIVE VS TRACH AND PEG. ALL QUESTIONS AND CONCERNS ADDRESSED. PATIENT'S FAMILY WOULD LIKE TO DISCUSS AMONGST THEMSELVES AND PROVIDE AN ANSWER TO DR HARRIS TOMORROW 10/06/18.
--- NOTE | 2018-10-05 17:30 | NUR ---
SALES REPRESENTATIVE PRINTING AT BEDSIDE PRAYING WITH PATIENT.
--- NOTE | 2018-10-05 18:45 | NUR ---
THE PATIENT WAS GIVEN A BATH; LINEN AND GOWN WERE CHANGED. ALL THE PHOTOS OF OF SKIN ISSUES WERE TAKEN. PATIENT REMAINED ON VENT VIA VCV-AC MODE WITH THE SAME SETTING: FIO2 25%, RATE 14, PEEP 5, AND Vt 500. WILL ENDORSE CARE TO ONCOMING RN.
--- NOTE | 2018-10-05 19:10 | NUR ---
REPORT WAS GIVEN TO AMADO KAHN RN. CONCERNS WERE ADDRESSED.
[2018-10-06] VITALS (18 sets, daily range): BP systolic 86–165; BP diastolic 45–87
[2018-10-06 05:49] LABS: BASOPHIL % 0.2 % (0-2); RED CELL DISTRIBUTION WIDTH 16.1 % (11.5-14.5)
[2018-10-06 05:53] LABS: PLATELET COUNT 683 x10^3mcL (130-400)
[2018-10-06 06:08] LABS: CALCIUM 8.3 mg/dL (8.5-10.1); CARBON DIOXIDE 25.6 mmol/L (21-32); CHLORIDE SERUM 98 mmol/L (98-107); CREATININE SERUM 0.8 mg/dL (0.6-1.0); GLUCOSE SERUM 118 mg/dL (74-106); MAGNESIUM 1.7 mg/dL (1.8-2.4); PHOSPHOROUS 2.9 mg/dL (2.5-4.9); POTASSIUM SERUM 4.8 mmol/L (3.5-5.1); SODIUM SERUM 130 mmol/L (136-145)
--- NOTE | 2018-10-06 07:52 | NUR ---
NOTE FROM 0732 TO 0752: AT 0732: THE PATIENT WAS INTUBATED AND SEDATED WITH VERSED AT 0.5MG/HR. THE PATIENT FROWNED AND MOVED HER HEAD LITTLE BIT WITH TACTILE STIMULI, BUT DID NOT FOLLOW SIMPLE COMMANDS. VICENTE PUPILS WITH SLUGGISH REACTION TO LIGHT. 7.5 ETT WAS SECURED AT 22CM AT LIPLINE. ETT WAS CONNECTED TO VENT VIA VCV-AC MODE: FIO2 25%, RATE 14, PEEP 5 AND Vt 500. PATIENT HAD EPISODES OF FAST BREATHING WITH RR > 20S. OGT WAS SECURED TO ETT. OGT PLACEMENT WAS VERIFIED WITH SOME AIR BOLUS. NO GASTRIC RESIDUAL AT THIS TIME. OGT CONNECTED TO TF OF JEVITY AT 1.2 AT 40CC/HR AND FREE WATER FLUSH OF 50CC/Q4HR. TLC TO LIJ WITH DRESSING INTACT. MARTINEZ CATH TO GRAVITY DRAINING YELLOW URINE. PATIENT WAS ON AIR MATTRESS. Z FLEX IN PLACE TO VICENTE HEELS. BED WAS AT LOWEST POSITION. HEAD OF BED ELEVATED. BUE AND BLE WERE ELEVATED ON PILLOWS. VERSED WAS HELD FOR 20 MINUTES. AT 0752: VERSED WAS RESUMED AT 0.25MG/HR. TO REACH THE GOAL OF RSS 4.
--- NOTE | 2018-10-06 07:57 | NUR ---
DR. NEFF IN TO SEE THE PATIENT. UPDATE WAS PROVIDED TO THE DOCTOR. DR. NEFF WAS AWARE OF THE PATIENT'S LOW HEART RATES IN 40S.
--- NOTE | 2018-10-06 09:10 | NUR ---
TF WAS HELD; RT WILL TITRATE VENT TO CPAP MODE.
--- NOTE | 2018-10-06 09:13 | NUR ---
PLACED PT ON CPAP [address] MINA OCAMPO.
--- NOTE | 2018-10-06 09:15 | NUR ---
VERSED WAS HELD WHILE THE PATIENT WAS ON CPAP TRIAL.
--- NOTE | 2018-10-06 10:50 | NUR ---
DR. STEVENS AND THE TEAM WERE MAKING ROUND TO SEE THE PATIENT.
--- NOTE | 2018-10-06 11:27 | NUR ---
THE PATIENT'S BREATHING WAS 44 PER MIN. RT BOGDAN WAS AT BEDSIDE AND PLACED THE VENT BACK ON VCV-AC MODE WITH SAME PREVIOUS SETTING: FIO2 25%, RATE 14, PEEP 5 AND Vt 500. TF WAS RESUMED.
--- NOTE | 2018-10-06 11:27 | NUR ---
RR 44 BREATHS/MIN, PT PLACED BACK ON A/C VC WITH PREVIOUSLY ORDERED AND CHARTED VENT SETTINGS.
--- NOTE | 2018-10-06 13:35 | NUR ---
NEW BOTTLE OF FORMULA AND TUBING WERE CHANGED FOR THE PATIENT. VERSED BAG AND LINE WERE CHANGED DUE TO EXPIRATION.
--- NOTE | 2018-10-06 14:20 | NUR ---
DR. ENRIQUEZ WAS AT BEDSIDE SEEING THE PATIENT.
--- NOTE | 2018-10-06 14:45 | NUR ---
Follow-Up Nutrition Assessment Dx: Respiratory insufficiency Labs: (10/06) Na 130L, K 4.8, BG 118H, BUN 23H, Cr 0.8, WBC 9.9, H/H 8L/25L Meds: Ativan, Colace, Ferrous sulfate, Folic acid, Fosamax, Lasix, Oyster shell Ca, Pro-Amatine, Protonix, NSIV, Synthroid, Tylenol, Vancocin, Versed, Zosyn, Zofran, Heparin Nutrition Support: TF with Jevity 1.2 @ goal rate 40 mL/Hr with 50 mL FWF Q4H. Provides 1440 calories, 67 g protein, and 968 mL FW (total fluids including FWF: 1268 mL). Residuals: Minimal per RN I and O: (10/06) 917/500 +417 (10/05) 1951/1080 +871 (10/04) 1931/2550 -619; pt. mostly in positive fluid balance, weight fluctuations are expected. TF intake: (10/05) 898 mL (10/04) 939 mL ; meeting >75% estimated calorie and protein needs Wt: (10/05) 75.1 kg, 141# (64.1 kg) admission weight Skin: Skin tear to RLE, Right lateral knee, lateral foot, 5th toe, medial foot DTI, Left medial foot, 5th toe, lateral heel DTI per senior control systems engineer assessment notes. Tucker: 12 Edema: 2+ to BLE and BUE GI: Last BM x 1 (10/05) small, loose BM Per provider progress notes, pt. continues with failed multiple weaning trials and is not tolerating mechanical ventilation well at this time. Pt. prognosis poor, and providers will continue meet with family members to discuss further care, such as potential needs for tracheostomy placement. Pt. seen intubated and sedated with Versed during visit with OGT in place. No longer on pressors for hemodynamic statbility. Tolerating Jevity running at goal rate 40 mL/Hr without GI distress per RN and minimal residuals noted. Estimated Nutritional Needs Based on body weight 64 kg, Ve: 7.32, T: 36.6 C-Recalculated based on ventilator settings and vital signs. Energy: 1133 kcal/d (PSU 2002 for pts. in ICU with ventilation support) Protein: 64-76 g/d (1.0-1.2 g/kg)-skin breakdown prevention/maintenance Fluid: 1133 ml/d (1 ml/kcal) or per doctor Nutrition Diagnosis 1. Excessive EN infusion r/t current TF regimen order and decreased needs for critical illness AEB current ordered rate and sedative agent meeting >140% estimated calorie needs. (resolved) Intervention/RD recommendations 1. Recommended to continue Jevity 1.2 to 40 mL/Hr with 50 mL/FWF Q4H (total fluids: 1074 mL) to better meet calorie needs. Regimen will provide 1253 calories and 53 g protein, which will meet 108% of estimated calorie needs and 83% estimated lower end of protein needs. Monitor/Evaluate Goal: TF intake at least 75% estimated needs (met) New Goal: TF intake at least 75% estimated needs Monitor: TF tolerance, Labs, GI function, weights, skin integrity F/U in 2-3 days as high risk (10/08-10/09)
--- NOTE | 2018-10-06 16:30 | NUR ---
THE SKIN TEAR AT RIGHT LOWER BACK, RIGHT KNEE, AND RIGHT LEG WERE CLEANSED WITH NS, PATTED DRY, AND APPLIED WITH HYGROGEL AND ISLAND DRESSINGS. MULTIPLE DTI TO BOTH FEET WERE APPLIED SKIN PREP. PATIENT WAS GIVEN A BATH; GOWN CHANGED. LINEN CHANGED.
--- NOTE | 2018-10-06 17:35 | NUR ---
THE PATIENT HAD BM WITH WATERY STOOL. THE PATIENT WAS CLEANSED. LINEN WAS CHANGED. THE TECHNOLOGIES DIVISION CHAIR AND MANY FAMILY MEMBERS CAME TO BEDSIDE FOR PRAYERS.
--- NOTE | 2018-10-06 18:49 | NUR ---
THE PATIENT REMAINED ON VENT VIA VCV-AC MODE: FIO2 25%, RATE 14, PEEP 5, AND Vt 500. PATIENT HAD EPISODES OF FAST BREATHING WITH RR >20; VERSED DRIP REMAINED AT 0.25MG/HR.
--- NOTE | 2018-10-06 19:30 | NUR ---
RECEIVED REPORT FROM ENRICO QUAN. PT IS ALERT AND RESPONSIVE TO TACTILE STIMULUS. PUPILS ARE 3 MM AND SLUGGISH BILATERALLY. PT IS INTUBATED AND SEDATED ON VERSED 0.25 MG/HR. 7.5 ETT AT 22 CM AT LL. OGT PATENT, AND INTACT. JEVITY INFUSING AT 40 ML/HR WITH NO RESIDUAL. EENT FREE OF DISCHARGE. NO JVD NOTED. TRACHEA MIDLINE. LUNG SOUNDS DIMINISHED TO BILATERAL UPPER LOBES AND DIMINISHED TO BILATERAL LOWER LOBES. VENT SETTINGS INCLUDE RATE: 14, TV: 500, O2: 25%, PEEP: 5. S1 S2 HEART SOUNDS AUSCULTATED. PT HAS RIJ CVC PATENT, DRESSING CDI WITH NS INFUSING AT 20 ML/HR. ABD IS SOFT AND ROUNDED WITH ACTIVE BOWEL SOUNDS X4Q. PT HAS HERNIA TO RUQ, AND PROTRUDING RECTUM. PT HAS MARTINEZ DRAINING VIA GRAVITY. URINE IS YELLOW WITH FAIR OUTPUT. PT HAS +1 EDEMA TO BUE, BLE. PT HAS RIGHT LEG SKIN TEAR, REDNESS TO COCCYZ WITH OPTIFOAM IN PLACE, REDNESS TO INNER THIGHS WITH Z GUARD IN PLACE. ALL QUESTIONS AND CONCERNS ANSWERED.
--- NOTE | 2018-10-06 19:42 | NUR ---
REPORT WAS GIVEN TO AMADO BLACKWOOD RN. CONCERNS WERE ADDRESSED.
[2018-10-07] VITALS (13 sets, daily range): BP systolic 83–138; BP diastolic 41–80
[2018-10-07 05:44] LABS: BASOPHIL % 0.6 % (0-2); CALCIUM 8.5 mg/dL (8.5-10.1); CHLORIDE SERUM 96 mmol/L (98-107); CREATININE SERUM 0.9 mg/dL (0.6-1.0); GLUCOSE SERUM 105 mg/dL (74-106); MAGNESIUM 1.7 mg/dL (1.8-2.4); PHOSPHOROUS 3.1 mg/dL (2.5-4.9); POTASSIUM SERUM 5.5 mmol/L (3.5-5.1); SODIUM SERUM 129 mmol/L (136-145)
[2018-10-07 05:45] LABS: RED CELL DISTRIBUTION WIDTH 17.1 % (11.5-14.5)
[2018-10-07 05:46] LABS: PLATELET COUNT 817 x10^3mcL (130-400)
--- NOTE | 2018-10-07 06:34 | NUR ---
PT PROVIDED WITH FULL BED BATH, VAP CARE, MARTINEZ CARE. ALL LINES, LINENS, AND TUBING CHANGED. PT TOLERATED WELL.
--- NOTE | 2018-10-07 07:28 | NUR ---
RECEIVED AWAKE, ALERT AND RESPONDING TO TACTILE STIMULI. NO ACUTE RESP. DISTRESS NOTED. O2 SATS 97% ON CURRENT VENT SETTING. NO S/S OF PAIN OR DISCOMFORT. CATALINA. WELL WITH TUBE FEEDING, NO RESIDUAL NOTED. MARTINEZ CATH IN PLACE DRAINING TO GRAVITY. PT REPOSITIONED IN BED FIR COMFORT. WILL CONTINUE W/PLAN OF CARE.
--- NOTE | 2018-10-07 09:30 | NUR ---
TYLENOL GIVEN FOR DISCOMFORT WITH FAIR RELIEF. PT NODDED NO PAIN AT THIS TIME.REPOSITIONED FOR COMFORT. WILL CONTINUE TO MONITOR.
--- NOTE | 2018-10-07 10:55 | NUR ---
PT HAD LARGE WATERY STOOL. CLEANED AND PERICARE DONE. REPOSITIONED FOR COMFORT. NO ACUTE DISTRESS NOTED AT THIS TIME.
--- NOTE | 2018-10-07 12:46 | NUR ---
POSITION CHANGED, PT IN NO ACUTE DISTRESS. VSS
--- NOTE | 2018-10-07 15:14 | NUR ---
DR. ENRIQUEZ IN TO SEE PT, ORDERS RECEIVED AN REVIEWED.PT STILL INTUBATED AND SEDATED, OPEN EYES WITH LIGHT TOUCH. NO ACUTE DISTRESS NOTED. O2 SATS 97% ON CURRENT VENT SETTINGS. WILL CONTINUE TO MONITOR.
--- NOTE | 2018-10-07 15:28 | NUR ---
VERSED INCREASED TO 1MG/HR FOR PT IS MORE AWAKE AND RESTLESS. RR UP TO 40 . PT REPOSITIONED FOR COMFORT.
--- NOTE | 2018-10-07 15:30 | NUR ---
DR. ENRIQUEZ AT BEDSIDE TO EVAL PT. RECEIVED VERBAL ORDER TO INCREASE VERSED TO 1MG/HR FOR PT'S COMFORT.PT CODE STATUS IS CHANGED TO DNR PER FAMILY WISH. WILL CONTINUE TO MONITOR.
--- NOTE | 2018-10-07 15:50 | NUR ---
PER DR ENRIQUEZ, WANTS MORPHINE DRIP STARTED WHEN RECEIVED FROM PHARMACY.
--- NOTE | 2018-10-07 16:37 | NUR ---
MORPHINE DRIP STARTED PER ORDER.STARTED AT 2MG/HR AND WILL TITRATE NEEDED FOR COMFORT. BED BATH GIVEN AND LINEN CHANGED. PT APPEARS COMFORTABLE AT THIS TIME.
--- NOTE | 2018-10-07 17:43 | NUR ---
SOME FAMILY MEMBERS AT BEDSIDE, WAITING FOR MORE FAMILY TO COME BEFORE EXTUBATE PT.PT APPEARS COMFORTABLE AT THIS TIME. IS ONGOING MORPHINE DRIP.
--- NOTE | 2018-10-07 18:02 | NUR ---
EXTUBATED AT THIS TIME BY EUGENIO RT, MYSELF, AND RT STUDENT AT BEDSIDE. TOLERATED WELL. PUT ON 4L NC. FAMILY PRESENT OUTSIDE OF ROOM, AWARE, AND IN AGREEMENT WITH PALLIATIVE EXTUBATION.
--- NOTE | 2018-10-07 18:30 | NUR ---
MORPHINE TITRATED TO 4MG/HR.
--- NOTE | 2018-10-07 18:45 | NUR ---
MORPHINE TITRATED TO 6 MG/HR.
--- NOTE | 2018-10-07 19:18 | NUR ---
PT APPEARS COMFORTABLE, FAMILY AT BEDSIDE. WILL BE ENDORSED TO INCOMING SHIFT.
--- NOTE | 2018-10-07 20:00 | NUR ---
RECEIVED PT ASLEEP BUT RESPONSIVE TO TACTILE STIMULI,WOULD OPEN EYES WITH SOME TRACKING.BREATHING EASY AND NON-LABORED.ON O2 @ 2L/MIN VIA N/C.POST EXTUBATION TODAY.WHEEZES ON AUSCULTATION.RT IN TO GIVE BREATHING TX.ON DNR-PALLIATIVE CARE.ON GUARDED CONDITION.MORPHINE DRIP @ 6MG/HR.APPEARS COMFORTABLE.NO FACILA GRIMACING NOTED.LATEST BP 114/54 MMHG,HR 82.RR 25.O2 SAT @ 99%.CONTRACTURE TO BUE/BLE.SWELLING TO BUE AND BLE NOTED.MULTIPLE WOUND NOTED WITH DRESSING CDI.CONTACTURE TO BUE/BLE.LEEDER BOOTS APPLIED.REPOSITIONED TO HER LEFT SIDE.WILL CONTINUE TO MONITOR.
--- NOTE | 2018-10-07 23:43 | NUR ---
PT ASLEEP.BREATHING EASY AND NON-LABORED.O2 @ 2L/MIN VIA N/C AND TOLERATING WELL.O2 SAT @ 100%.ON MORPHINE DRIP @ 6MG/HR.NO S/S OF PAIN OR DISCOMFORT.BP 83/41 MMHG,HR 77,RR 16.ON DNR STATUS.ON GUARDED CONDITION.F/C TO YELLOW COLORED URINE.LEEDER BOOTS AND SCD'S IN PLACED.REPOSITIONED AT THIS TIME.WILL CONTINUE TO MONITOR.
[2018-10-08 04:03] VITALS: BP 114/48
--- NOTE | 2018-10-08 04:12 | NUR ---
PT ASLEEP BUT AROUSABLE.RESPONSIVE TO TACTILE STIMULI.BREATHING EASY AND NON-LABORED.TOLERATING O2 @ 2L/MIN VIA N/C.O2 SAT @ 975.ON MORPHINE DRIP @ 6MG/HR.NO S/S OF PAIN OR DISCOMFORT.NO FACIAL GRIMACING.BP 114/48 MMHG,HR 77,RR 17.VENTRAL HERNIA NOTED.RECTAL PROLAPSE.F/C TO YELLOW COLORED URINE.HEELS FLOATED ON BOOTS.ON PRESSURE MATTRESS.REPOSITIONED AT THIS TIME.WILL CONTINUE TO MONITOR.
--- NOTE | 2018-10-08 04:37 | NUR ---
BEDBATH GIVEN.CHANGED ALL GOWN AND LINEN.CHLORHEXIDINE WIPES DONE AND WELL TOLERATED.HOB KEPT ELEVATED.REPOSITIONED AT THIS TIME.WILL CONTINUE TO MONITOR.
--- NOTE | 2018-10-08 07:01 | NUR ---
PT DNR. OXYGEN TURNED FROM 2 LPM TO RA AT THIS TIME. PT SATTING 98%. BREATHING E/U.
[2018-10-08 07:50] VITALS: Ht 154.9 cm; Wt 83.5 kg
--- NOTE | 2018-10-08 08:24 | NUR ---
DR. ENRIQUEZ AT BEDSIDE TO ASSESS PT. UPDATED ON PT'S STATUS. PT RR 28. MORPHINE TITRATED FROM 6 MG/HR TO 8 MG/HR. PER DR. ENRIQUEZ PULSE OXIMETER MONITORING DISCONTINUED AT THIS TIME.
[2018-10-08 08:40] VITALS: BP 93/40
--- NOTE | 2018-10-08 08:52 | NUR ---
INCREASED WORK OF BREATHING, PT NOTED TO BE GRUNTING. RR 23. MORPHINE TITRATED FROM 8 MG/HR TO 10 MG/HR
--- NOTE | 2018-10-08 10:00 | NUR ---
PATIENT HAS AN INCREASE WORK OF BREATHING, TITRATED THE MORPHINE DRIP FROM 10 MG/HR TO 12 MG/HR.
--- NOTE | 2018-10-08 11:02 | NUR ---
PT GRUNTING, INCREASED WORK OF BREATHING. RR 24. MORPHINE TITRATED FROM 12 MG/HR TO 14 MG/HR.
--- NOTE | 2018-10-08 11:43 | NUR ---
PATIENTS EYES WERE OPEN AND TROUBLE BREATHING, INCREASED MORPHINE DRIP TO 16 MG/HR
[2018-10-08 12:30] VITALS: BP 81/39
--- NOTE | 2018-10-08 12:36 | NUR ---
Nutrition Note: Pt. underwent palliative extubation on 10/07/18 and code status changed to DNR-Palliative Care only. Not receiving TF at this time. Last assessed on 10/06/18. Will follow up as low risk with next assessment due 10/13/18.
--- NOTE | 2018-10-08 13:49 | NUR ---
REPORT GIVEN TO [facility] SUR[facility] NURSE, FOR PATIETN TRANSFER.
--- NOTE | 2018-10-08 14:19 | NUR ---
TRANSFERRED PATIENT TO [facility] ROOM 224B. HANDOFF REPORT WAS GIVEN TO ENRICO EPSTEIN. MORPHINE BAG WAS GIVEN TO TETE WESTON. PATIENT IS ON ROOM AIR, PATIENT IS NOT RESPONDING TO COMMANDS.
--- NOTE | 2018-10-08 14:20 | NUR ---
RECEIVED PATIENT VIA BED, EYES CLOSED, UNRESPONSIVE. APPEAR COMFORTABLE, UNLABORED BREATHING NOTED, LIJ X 3 LUMEN INTACT WITH DRESSING CDI, MORPHINE DRIP INFUSING WELL TO RIJ, CONT TO MONITOR.
[2018-10-08 15:20] VITALS: BP 92/43
--- NOTE | 2018-10-08 15:24 | NUR ---
RFA 22G PERIPHERAL IV INITIATED AT THIS TIME. FLUSHED WITH 10 ML NS. NO S/SX OF INFILTRATION AND DRESSING CDI.
--- NOTE | 2018-10-08 15:42 | NUR ---
PATIENT IN BED, NO VISIBLE SIGNS OF DISTRESS. NO SIGNS OF PAIN. VITALS TAKEN. ON TELEMETRY #29. NOTIFIED TELEMETRY STATION FOR PALLIATIVE CARE. PATIENT DOES NOT RESPOND TO VERBAL OR TACTILE STIMULUS. PATIENT MADE COMFORTABLE, NO FAMILY AT BEDSIDE.
--- NOTE | 2018-10-08 17:27 | NUR ---
PATIENT IN BED, NO VISIBLE SIGNS OF DISTRESS, PAIN, DISCOMFORT. RESPIRATIONS REGULAR RATE, RHYTHM. FAMILY AT BEDSIDE. MORPHINE IV STILL INFUSING.
[2018-10-08 17:55] VITALS: BP 72/39
--- NOTE | 2018-10-08 18:10 | NUR ---
PATIENT IN BED. NO VISIBLE SIGNS OF PAIN OR DISCOMFORT. FAMILY AT BEDSIDE. PATIENT REPOSITIONED ON HER RIGHT SIDE. O2 STARTED @ 2 LPM VIA NC DUE TO LOW O2 SAT. FURTHER ASSISTANCE OFFERED TO FAMILY. JUAN ABREUITED.
--- NOTE | 2018-10-08 18:28 | NUR ---
PATIENT IN BED, O2 SAT REASSESSED. INCREASED TO 85%. INCREASED O2 TO 3 LPM. WILL CONTINUE TO MONITOR. NO SIGNS OF PAIN, DISCOMFORT.
--- NOTE | 2018-10-08 19:20 | NUR ---
RECEIVED PT LAYING IN BED, SON AT BEDSIDE. PT DOES NOT APPEAR TO BE IN PAIN, APPEARS COMFORTABLE, NO ACUTE DISTRESS NOTED. PT IS SEDATED, NONVERBAL, APHASIC, OBTUNDED, PUPILS WITH SLUGGISH REACTION TO LIGHT. MORPHINE INFUSING TO LIJ AT 16 MG/HR. NSR TO TELE #29, HR 74. PEDAL PULSES WEAK, +1 EDEMA TO BLE, +2 TO BUE WITH ERYTHEMIC PATCHES NOTED. BREATHING ON 2L NC, EVEN AND UNLABORED, CRACKLES AND CONGESTION NOTED, NO RESP DISTRESS NOTED. ABD WITH HERNIA NOTED, BOWEL SOUNDS HYPOACTIVE. MARTINEZ CATH IN PLACE DRAINING DARK YELLOW URINE TO GRAVITY. CONTRACTURES TO BUE AND BLE, BEDBOUND, TOTAL CARE, TURN Q2H. CENTRAL LINE TO LIJ IN PLACE, TRIPLE LUMEN, DRY, PATENT, AND INTACT, DRESSING CDI. COMFORT AND SAFETY MEASURES IN PLACE. ALL NEEDS ASSESSED AND ATTENDED TO. CALL LIGHT WITHIN REACH. WILL CONTINUE TO MONITOR
--- NOTE | 2018-10-08 19:20 | NUR ---
RECEIVED PT LAYING IN BED, SON AT BEDSIDE. PT DOES NOT APPEAR TO BE IN PAIN, APPEARS COMFORTABLE, NO ACUTE DISTRESS NOTED. PT IS SEDATED, NONVERBAL, APHASIC, OBTUNDED, PUPILS WITH SLUGGISH REACTION TO LIGHT. MORPHINE INFUSING TO LIJ AT 16 MG/HR. NSR TO TELE #29, HR 74. PEDAL PULSES WEAK, +1 EDEMA TO BLE, +2 TO BUE WITH ERYTHEMIC PATCHES NOTED. BREATHING ON RA, EVEN AND UNLABORED, CRACKLES AND CONGESTION NOTED, NO RESP DISTRESS NOTED. ABD WITH HERNIA NOTED, BOWEL SOUNDS HYPOACTIVE. MARTINEZ CATH IN PLACE DRAINING DARK YELLOW URINE TO GRAVITY. CONTRACTURES TO BUE AND BLE, BEDBOUND, TOTAL CARE, TURN Q2H. CENTRAL LINE TO LIJ IN PLACE, TRIPLE LUMEN, DRY, PATENT, AND INTACT, DRESSING CDI. COMFORT AND SAFETY MEASURES IN PLACE. ALL NEEDS ASSESSED AND ATTENDED TO. CALL LIGHT WITHIN REACH. WILL CONTINUE TO MONITOR
[2018-10-08 20:33] VITALS: BP 95/39
--- NOTE | 2018-10-08 21:03 | NUR ---
NEW MORPHINE BAG INITIATED, INFUSING AT 16 MG/HR AT THIS TIME. PREVIOUS BAG WITH 3 ML WASTED WITH SECOND RN, RAKESH.
--- NOTE | 2018-10-09 00:15 | NUR ---
ROUNDS MADE, NO ACUTE DISTRESS NOTED. PT LAYING IN BED, BREATHING EVEN AND UNLABORED, RR 11. PT APPEARS COMFORTABLE, NO GRIMACING OR MOANING NOTED. MORPHINE INFUSING AT 16 MG/HR. COMFORT AND SAFETY MEASURES IN PLACE. CALL LIGHT WITHIN REACH. WILL CONTINUE TO MONITOR
[2018-10-09 06:09] VITALS: BP 90/29
--- NOTE | 2018-10-09 08:00 | NUR ---
SEDATED. NO RESPONSE TO VERBRAL STIMULI. PATIENT IS DNR, ON PILLIATIVE CARE ONLY. MORPHINE DRIP 16MG/HR. B/P = 86/31; RR = 9; BREATHING SHALLOW. O2 SAT 97% ON 2L VIA N/C. GENERAL EDEMA 3+. CONTRACTURED BLE. MARTINEZ PATENTW/ SCANT LEE ANN URINE IN BAG. MORPHINE DRIP VIA CENTRAL LINE TO LIJ. SITE CLEAN. NO REDNESS/SWELLING. TELE#29 SHOWED SR; HR = 74MIN. PATIENT COMFORT. NO S/S OF PAIN. NO FAMILY AT BED SIDE NOW. WILL REPOSITION Q2H.
[2018-10-09 09:30] VITALS: BP 86/61
--- NOTE | 2018-10-09 13:09 | NUR ---
PATIENT OPENED EYES WHEN REPOSITIONED HER. RR = 13; P = 76; O2 SAT 98% ON 2L VIA N/C. INCREASED MORPHINE DRIP TO 18MG/HR. CONTINUE MONITOR.
[2018-10-09 16:12] VITALS: BP 78/28
--- NOTE | 2018-10-09 18:41 | NUR ---
ON MORPHINE DRIP 18MG/HR. COMFORTABLE. RR=11; O2 SAT 94%; TELE#29 SHOWED HR = 79; SR. MARTINEZ OUTPUT 150 CC OF LEE ANN URINE COLLECTED. ENDORSED CARE TO [facility] NURSE.
--- NOTE | 2018-10-09 19:25 | NUR ---
REPORT RECIEVED FROM PORTIA SHIFT RN. PATIENT WAS SEEN AND IS RESTING COMFORTBALY IN BED AT THIS TIME. FAMILY AT BEDSIDE. PATIENT IS NONVERBAL BUT IS ABLE TO OPEN HER EYES. NO FACIAL GRIMACING NOTED. ON 2L NC. LEFT IJ CENTRAL LINE NOTED WITH MORPHINE DRIP AT 36ML/HR. IV IS PATENT AND INTACT. NO REDNESS OR SWELLING NOTED. LUNGS ARE DIMINISHED. PATIENT IS SWOLLEN IN BOTH UPPER AND LOWER EXTREMITIES. BLE ARE CONTRACTED. HEEL OFF LOADING BOOTS IN PLACE. PATIENT WAS REPOSITIONED TO THE LEFT SIDE. MARTINEZ CATHETER IN PLACE WITH CLEAR YELLOW OUTPUT DRAINING. COMFORT AND SAFETY MEASURES MAINTAINED. SIDE RAILS ARE UP X2. BED IS LOCKED AND IN THE LOWEST POSITION. CALL LIGHT IS WITHIN REACH. INSTRUCTED PATIENT AND FAMILY TO CALL FOR ASSISTANCE. WILL CONTINUE TO MONITOR.
--- NOTE | 2018-10-09 20:00 | NUR ---
PATIENT'S VAGINAL AREA WAS CLEANED. YELLOW DISCHARGE NOTED.
--- NOTE | 2018-10-09 21:28 | NUR ---
BLUE AND WHITE IV PORTS ARE NOT PATENT. WILL NOT FLUSH. ONLY THE BROWN LINE IS PATENT.
[2018-10-09 21:48] VITALS: BP 69/25
--- NOTE | 2018-10-10 01:15 | NUR ---
PATIENT IS SLEEPING COMFORTABLY IN BED. 2L NC. CALL LIGHT IS WITHIN REACH. NO FACIAL GRIMACING NOTED. PATIENT WAS REPOSITIONED. SAFETY MEASURED MAINTAINED. WILL CONTINUE TO MONITOR.
--- NOTE | 2018-10-10 04:47 | NUR ---
NEW MORPHINE DRIP BAG INITIATED. 25ML WASTED FROM OLD BAG. NABOR WESTON WITNESSED.
--- NOTE | 2018-10-10 05:29 | NUR ---
MARTINEZ CATHETER CARE PROVIDED. 100ML STRAW YELLOW OUTPUT .
[2018-10-10 05:34] VITALS: BP 68/29
--- NOTE | 2018-10-10 06:33 | NUR ---
PATIENT SLEPT THROUGHOUT THE NIGHT. COMFORT MEASURES MAINTAINED. LEFT IJ CENTRAL LINE WITH MORPHINE INFUSING AT 36ML/HR (18MG) ON THE BROWN PORT. BLUE AND WHITE PORT ARE NOT PATENT. ON 2L. NO FACIAL GRIMACING OR S/S OF PAIN NOTED. NO ACUTE CHANGED NOTED. SAFETY MEASURES MAINTAINED. BED IS LOCKED AND IN THE LOWEST POSITION. SIDE RAILS UP X2. CALL LIGHT IS WITHIN REACH. WILL ENDORSE CARE TO DAY SHIFT RN.
--- NOTE | 2018-10-10 07:25 | NUR ---
RECEIVED PT. IN BED AT THIS TIME. PT. APPEARS LETHARGIC. NOTED PT. OPENS EYES OCCASIONALLLY. PT. IS NON-VERBAL. NO SOB, NO N/V NOTED. NO INDICATION OF PAIN NOTED. PT. IS ON MORPHINE DRIP RUNNING AT 18 MG/HR (36 CC/HR.) VIA THE BROWN PORT OF TLC CATH. AT L NECK. F/C DRAINING LEE ANN URINE. BED IN LOW POS., CALL LIGHT WITHIN REACH. SIDE RAILS UP X3.
[2018-10-10 07:45] VITALS: BP 80/34
[2018-10-10 12:16] VITALS: BP 76/29
--- NOTE | 2018-10-10 15:00 | NUR ---
FLUSHED TLC CATH. AT L NECK WITH 5 CC OF NS. ONLY THE WHITE AND THE BROWN PORTS FLUSHED WELL. RESISTANCE FELT AT THE BLUE PORT.
--- NOTE | 2018-10-10 16:57 | NUR ---
SPOKE WITH VALENTINO WESTON. SHE STATED WILL CONTACT MD TO SPEAK WITH FAMILY AND TO REMOVE PRN HHN TX.
--- NOTE | 2018-10-10 17:23 | NUR ---
FAMILY MEMBERS AT BEDSIDE. F/C CARE GIVEN. BREATHING IS EVEN AND UNLABORED. MORPHINE DRIP MAINTAINED AT 18MG/HR. PT. APPEARS COMFORTABLE IN BED. WILL CONTINUE TO MONITOR.
[2018-10-10 17:39] VITALS: BP 66/28
--- NOTE | 2018-10-10 19:35 | NUR ---
RECEIVED PATIENT IN BED LETHARGIC NONVERBAL, OPEN EYES AT TIMES, GENERALIZED EDEMA NOTED WITH WEAK PULSES. TELE@29 SR WITH BBB ON MONITOR. ON O2 AT 2L VIA NC SATTING 94% WITH DIMINISHED BS. ABDOMEN ROUND, OBSES WITH HYPOACTIVE BOWEL SOUNDS WITH ABDOMINAL HERNIA NOTED. CONTACTED BLE AND TOTAL CARE. MARTINEZ TO GRAVITY WITH SMALL AMOUNT OF LEE ANN URINE OUTPUT. CENTRAL LINE TO LIJ INFUSING WITH NS 10ML/HR AND MORPHINE DRIP 36ML/HR(18MG/HR). WILL CONTINUE TO MONITOR. FAMILY MEMBER AT BEDSIDE.
[2018-10-10 22:41] VITALS: BP 64/27
--- NOTE | 2018-10-10 23:59 | NUR ---
NO SIGN OF PAIN AND DISCOMFORT NOTED AT THIS TIME, WITH SHALLOW BREATHING ON O2 AT 2L VIA NC. WILL CONTINUE TO MONITOR.
--- NOTE | 2018-10-11 01:40 | NUR ---
PATIENT IS HAVING AGONAL BREATHING AT THIS TIME WITH R-14, HR- 47, BP-60/26 SATTING AT 94% ON O2 AT 2L VIA NC. WILL CONTINUE TO MONITOR.
--- NOTE | 2018-10-11 03:49 | NUR ---
PATIENT WITH SHALLOW BREATHING WITH RESPIRATION OF 14 AND HR-54. WILL CONTINUE TO MONITOR.
--- NOTE | 2018-10-11 05:27 | NUR ---
CHECKED AT INTERVALS FOR NEEDS AND COMFORT. MARTINEZ CATH CARE GIVEN.
[2018-10-11 05:56] VITALS: BP 67/28
--- NOTE | 2018-10-11 07:20 | NUR ---
RECEIVED PT. IN BED AT THIS TIME. PT. IS LELARGIC AND UNABLE TO MAKE NEEDS KNOWN. NOTED PT. BLINKS HER EYES OCCASIONALLY. BREATHING PATTERN APPEARS SHALLOW AND UNLABORED. NO SIGN OF PAIN NOTED AT THE PRESENT TIME. PT. IS ON MORPHINE DRIP RUNNING AT 18MG/HR (36 CC/HR) VIA THE BROWN PORT OF TLC CATH. AT L NECK. F/C DRAINING SCANTY AMT. OF LEE ANN URINE. PT. IS NON-VERBAL. GENERALIZED BODY EDEMA NOTED. HEEL PROTECTORS IN PLACE. WILL CONTINUE TO MONITOR.
[2018-10-11 08:34] VITALS: BP 62/25
--- NOTE | 2018-10-11 11:30 | NUR ---
FAMILY AT BEDSIDE.
[2018-10-11 12:45] VITALS: BP 62/22
--- NOTE | 2018-10-11 13:10 | NUR ---
NOTED PT. EXPERIENCING AGONAL BREATHING. R.R.= 8/MIN. H.R.= 30 BPM. FAMILY NOT IN ROOM AT THIS TIME.
--- NOTE | 2018-10-11 13:12 | NUR ---
PT. SHOWED ASYSTOLE ON HEART MONITOR. FACIAL SKIN APPEARS PALE. UNABLE TO DETECT PERIPHERAL PULSES. NO SIGN OF RESPIRATION OBSERVED. FAMILY CALLED BY NORTH Nunez (SAFE TECHNICIAN).
--- NOTE | 2018-10-11 13:13 | NUR ---
DR. ANDERSON AT BEDSIDE TO REASSESS PT. DR. ANDERSON PRONOUNCED PT.'S AT 1314.
--- NOTE | 2018-10-11 13:25 | NUR ---
MORPHINE DRIP STOPPED.
--- NOTE | 2018-10-11 13:43 | NUR ---
CALLED [employer] AND SPOKE WITH ABIMAEL. AWAITING CALL BACK FROM [employer] PER ABIMAEL.
--- NOTE | 2018-10-11 13:58 | NUR ---
CALLED [employer] AND SPOKE WITH NEREIDA. AWAITING CALL BACK FROM [employer] [facility] PER NEREIDA.
--- NOTE | 2018-10-11 14:50 | NUR ---
RECEIVED A CALL BACK FROM [employer]. SPOKE TO LISA FROM [employer]. LISA PROVIDED CASE # [id number].
--- NOTE | 2018-10-11 14:53 | NUR ---
GUSTABO KIRK FROM [employer] [employer] [employer] [facility] CALLED BACK AND SPOKE WITH NORTH Nunez (CHARGE R.N.). NORTH STATED PT.'S BODY WAS RELEASED BY [facility]ICAL [employer]ORATORY SERVICE TEACHER WITH CASE # [id number].
--- NOTE | 2018-10-11 16:00 | NUR ---
FAMILY MEMBERS AT BEDSIDE AT THIS TIME.
--- NOTE | 2018-10-11 16:06 | NUR ---
PT.'S SON (CUCO), WHO IS IN THE PT.'S ROOM AT THIS TIME, ACKNOWLEDGED THAT PT. HAS NO PERSONAL BELONGINGS TO BE SENT HOME.
--- NOTE | 2018-10-11 17:06 | NUR ---
POST-MORTEM CARE GIVEN. TLC CATH. TO L NECK REMOVED. DRY DRESSING APPLIED OVER CENTRAL LINE SITE. F/C REMOVED. TELE. MONITOR #29 REMOVED AND RETURNED TO TELE. MONITOR STATION. PT. IS PLACED IN THE SHROUD WITH APPROPRIATE PLACEMENT OF NAME TAGS.
--- NOTE | 2018-10-11 17:20 | NUR ---
PT. IS BEING TRANSPORTED TO THE HOSPITAL MORTUARY VIA GURNEY BY THE [facility] TECHNICAL SERVICES CONSULTANT.
== END 2018-10-11 17:26 | disposition expired | DRG 207 ==
LOC: ED 00:20 → IC 02:08 → DU 02:08 → IC 03:20 → DU 10-08 14:09 → IC 10-08 14:18 → DU 10-08 14:28
PROVIDERS: Emergency Medicine; Family Medicine; General Practice; ADMIT Internal Medicine
PROC: 5A1955Z Respiratory Ventilation, Greater than 96 Consecutive Hours (ICD-10-PCS; principal; 2018-09-24)
PROC: 0BH17EZ Insertion of Endotracheal Airway into Trachea, Via Natural or Artificial Opening (ICD-10-PCS; 2018-09-24)
PROC: 05HN33Z Insertion of Infusion Device into Left Internal Jugular Vein, Percutaneous Approach (ICD-10-PCS; 2018-09-24)
PROC: B544ZZA Ultrasonography of Left Jugular Veins, Guidance (ICD-10-PCS; 2018-09-24)
DX: J69.0 Pneumonitis due to inhalation of food and vomit (principal); J96.01 Acute respiratory failure with hypoxia; E43 Unspecified severe protein-calorie malnutrition; G93.41 Metabolic encephalopathy; J90 Pleural effusion, not elsewhere classified; E87.1 Hypo-osmolality and hyponatremia; I49.5 Sick sinus syndrome; I10 Essential (primary) hypertension; M06.9 Rheumatoid arthritis, unspecified; D64.9 Anemia, unspecified; E03.9 Hypothyroidism, unspecified; Z51.5 Encounter for palliative care; R74.0 Nonspecific elevation of levels of transaminase and lactic acid dehydrogenase [LDH]; Z68.26 Body mass index [BMI] 26.0-26.9, adult; Z86.711 Personal history of pulmonary embolism; Z79.01 Long term (current) use of anticoagulants
CPT/HCPCS: 36556; 36600; 83880; 84439; 87804; A4628; C9113; J1642; J1644; J1940; J2250; J2270; J2543; J2704; J3010; J3370; J3475; J3490; J7030; J7050; J7620; P9016; Q0092; Q0163; Q9967